=== PATIENT | male | born 1955 | race Caucasian/White ===

== ENCOUNTER 2018-09-01 15:29 | Inpatient (IN) ==
[2018-09-01] MEDS ORDERED: ASPIRIN 325 MG TABLET PO STA (15:40)
[2018-09-01] MEDS ORDERED: HEPARIN/NACL 0.9% 2 UNITS/ML 1,000 ML IV ONE (15:45)
[2018-09-01] MEDS ORDERED: LIDOCAINE 1% 20 ML VIAL ONE (15:45)
[2018-09-01] MEDS ORDERED: ONDANSETRON 4 MG/2 ML VIAL IV STA (15:46)
[2018-09-01] MEDS ORDERED: ENOXAPARIN 100 MG/ML SYRINGE SUBCUT STA (15:46)
[2018-09-01] MEDS ORDERED: MORPHINE 4 MG/1 ML VIAL IV STA (15:46)
[2018-09-01] MEDS ORDERED: ONDANSETRON 4 MG/2 ML VIAL ONE ×2 (15:47→16:42)
[2018-09-01] MEDS ORDERED: ENOXAPARIN 100 MG/ML SYRINGE SUBCUT ONE (15:47)
[2018-09-01] MEDS ORDERED: METOPROLOL TARTRATE 5 MG/5 ML VIAL IV STA (15:51)
[2018-09-01] MEDS ORDERED: METOPROLOL TARTRATE 5 MG/5 ML VIAL IV ONE (15:51)
[2018-09-01 16:03] LABS: Basophils # 0.1 10*3/uL (0.0-0.2); Basophils % 0.6 % (0.0-0.8); Eosinophils # 0.3 10*3/uL (0.0-0.87); Eosinophils % 4.2 % (0.00-10.9); Hematocrit 43.2 VOL% (42.0-52.0); Hemoglobin 14.3 GM/DL (14.0-18.0); Immature Granulocytes % 0.5 %; Immature Granulocytes Absolute 0.04 #; Lymphocytes # 2.9 10*3/uL (1.4-4.0); Lymphocytes % 35.7 % (21.2-54.2); Mean Corpuscular HGB Conc 33.1 GM/DL (32-36); Mean Corpuscular Hemoglobin 31 PG (27-34); Mean Corpuscular Volume 93.3 FL (87-102); Mean Platelet Volume 9.1 FL (9.6-12.0); Monocytes # 0.7 10*3/uL (0.11-0.8); Neutrophils # 4.1 10*3/uL (1.4-7.4); Platelet Count 282 T/CUMM (130-400); Red Blood Count 4.63 MC/CUMM (3.8-5.5); Red Cell Distribution Width 12.4 % (9.3-17.3); White Blood Count 8.1 T/CUMM (4-12)
[2018-09-01 16:13] LABS: INR 0.9; PT Patient Result 9.8 SECS; Partial Thromboplastin Time 24.6 SECS (0-40)
[2018-09-01] MEDS ORDERED: TIROFIBAN 5,000 MCG/100 ML PREMIX IV ONE (16:22)
[2018-09-01 16:23] LABS: Bilirubin,Total 0.5 MG/DL (0.2-1.0); Calcium 9.2 MG/DL (8.5-10.1); Osmolality,Calculated 283.1 MOS/KG (273-304); Potassium 4.1 MMOL/L (3.5-5.1); Total Protein 6.9 G/DL (6.4-8.3)
[2018-09-01] MEDS ORDERED: DOCUSATE SODIUM 100 MG CAPSULE PO PRN (16:25)
[2018-09-01] MEDS ORDERED: MORPHINE 4 MG/1 ML VIAL IV PRN (16:25)
[2018-09-01] MEDS ORDERED: diphenhydrAMINE CAP 25 MG CAPSULE PO PRN (16:25)
[2018-09-01] MEDS ORDERED: MAGNESIUM SULF RIDER 2 GM in PREMIX 1 EACH IV PRN (16:25)
[2018-09-01] MEDS ORDERED: guaiFENesin/DM ER 600-30 MG TABLET PO PRN (16:25)
[2018-09-01] MEDS ORDERED: BISACODYL 5 MG TABLET PO PRN (16:25)
[2018-09-01] MEDS ORDERED: POTASSIUM CHLORIDE 20 MEQ TABLET PO PRN (16:25)
[2018-09-01] MEDS ORDERED: ACETAMINOPHEN 325 MG TABLET PO PRN (16:25)
[2018-09-01] MEDS ORDERED: ONDANSETRON 4 MG/2 ML VIAL IV PRN (16:25)
[2018-09-01] MEDS ORDERED: MAGNESIUM SULF RIDER 4 GM in PREMIX 1 EACH IV PRN (16:25)
[2018-09-01] MEDS ORDERED: TIROFIBAN 5,000 MCG/100 ML PREMIX IV SCH (16:29)
[2018-09-01] MEDS ORDERED: TICAGRELOR 90 MG TABLET ONE (16:31)
[2018-09-01] MEDS ORDERED: NITROGLYCERIN SL 0.4 MG TABLET SL PRN (16:40)
[2018-09-01] MEDS ORDERED: ALUMINUM/MAGNES/SIMETH MAX STR 30 ML UDCUP PO PRN (16:40)
[2018-09-01] MEDS ORDERED: SODIUM CHLORIDE 0.9% 1,000 ML IV SCH (17:00)
[2018-09-01] MEDS: NICOTINE 21 MG/24 HR PATCH TRANSDERM SCH (18:34)
[2018-09-01 19:44] LABS: Troponin I 0.017 NG/ML (0.00-0.045)
[2018-09-01] MEDS: ROSUVASTATIN 20 MG TABLET PO SCH (20:16)
[2018-09-01] MEDS: METOPROLOL TARTRATE 50 MG TABLET PO SCH (20:17)
[2018-09-01] MEDS: TICAGRELOR 90 MG TABLET PO SCH (20:17)
[2018-09-01 22:27] LABS: Troponin I 0.029 NG/ML (0.00-0.045)
[2018-09-02 04:45] LABS: Basophils # 0.1 10*3/uL (0.0-0.2); Basophils % 0.6 % (0.0-0.8); Eosinophils # 0.1 10*3/uL (0.0-0.87); Eosinophils % 1.4 % (0.00-10.9); Hemoglobin 12.2 GM/DL (14.0-18.0); Immature Granulocytes % 0.3 %; Immature Granulocytes Absolute 0.03 #; Lymphocytes # 1.5 10*3/uL (1.4-4.0); Lymphocytes % 16.6 % (21.2-54.2); Mean Corpuscular HGB Conc 33.9 GM/DL (32-36); Mean Corpuscular Hemoglobin 31 PG (27-34); Mean Corpuscular Volume 92.1 FL (87-102); Mean Platelet Volume 9.5 FL (9.6-12.0); Monocytes # 0.6 10*3/uL (0.11-0.8); Monocytes % 6.8 % (1.7-12.7); Neutrophils # 6.7 10*3/uL (1.4-7.4); Neutrophils % 74.3 % (38.7-73.9); Platelet Count 259 T/CUMM (130-400); Red Blood Count 3.91 MC/CUMM (3.8-5.5); Red Cell Distribution Width 12.3 % (9.3-17.3)
[2018-09-02 05:03] LABS: INR 0.9; PT Patient Result 10.2 SECS
[2018-09-02 05:27] LABS: Blood Urea Nitrogen 14 MG/DL (7-18); Calcium 8.6 MG/DL (8.5-10.1); Glucose 122 MG/DL (74-106); Osmolality,Calculated 282.3 MOS/KG (273-304); Potassium 3.9 MMOL/L (3.5-5.1); Sodium 141 MMOL/L (136-145); Troponin I 0.024 NG/ML (0.00-0.045)
[2018-09-02 06:50] LABS: Risk Ratio 4.37; VLDL CHOLESTEROL 38.4 MG/DL
[2018-09-02] MEDS: ASPIRIN EC 81 MG TABLET PO SCH (08:34)
[2018-09-02] MEDS: PANTOPRAZOLE 40 MG TABLET PO SCH (08:35)
[2018-09-02] MEDS: TICAGRELOR 90 MG TABLET PO SCH ×2 (08:35→21:33)
[2018-09-02] MEDS: NICOTINE 21 MG/24 HR PATCH TRANSDERM SCH (08:35)
[2018-09-02] MEDS: LOSARTAN 50 MG TABLET PO SCH (08:35)
[2018-09-02] MEDS: METOPROLOL TARTRATE 50 MG TABLET PO SCH ×2 (08:35→21:33)
[2018-09-02] MEDS ORDERED: ENOXAPARIN 40 MG/0.4 ML SYRINGE SUBCUT SCH (16:30)
[2018-09-02] MEDS: ZALEPLON 5 MG CAPSULE PO PRN (21:33)
[2018-09-02] MEDS: ROSUVASTATIN 20 MG TABLET PO SCH (21:36)
[2018-09-03] MEDS: ZALEPLON 5 MG CAPSULE PO PRN (01:24)
[2018-09-03 03:40] LABS: Basophils % 0.2 % (0.0-0.8); Eosinophils # 0.1 10*3/uL (0.0-0.87); Eosinophils % 1.4 % (0.00-10.9); Hematocrit 36.4 VOL% (42.0-52.0); Hemoglobin 11.8 GM/DL (14.0-18.0); Immature Granulocytes % 0.4 %; Immature Granulocytes Absolute 0.04 #; Lymphocytes # 2.1 10*3/uL (1.4-4.0); Lymphocytes % 22.3 % (21.2-54.2); Mean Corpuscular HGB Conc 32.4 GM/DL (32-36); Mean Corpuscular Hemoglobin 30 PG (27-34); Mean Corpuscular Volume 93.6 FL (87-102); Mean Platelet Volume 9.4 FL (9.6-12.0); Monocytes # 0.8 10*3/uL (0.11-0.8); Monocytes % 8.6 % (1.7-12.7); Neutrophils # 6.2 10*3/uL (1.4-7.4); Neutrophils % 67.1 % (38.7-73.9); Platelet Count 275 T/CUMM (130-400); Red Blood Count 3.89 MC/CUMM (3.8-5.5); Red Cell Distribution Width 12.3 % (9.3-17.3); White Blood Count 9.3 T/CUMM (4-12)
[2018-09-03 03:53] LABS: INR 0.9
[2018-09-03 04:05] LABS: Calcium 8.7 MG/DL (8.5-10.1); Osmolality,Calculated 285.1 MOS/KG (273-304); Potassium 4.1 MMOL/L (3.5-5.1)
[2018-09-03 08:15] VITALS: BP 156/83
[2018-09-03] MEDS: NICOTINE 21 MG/24 HR PATCH TRANSDERM SCH (09:10)
[2018-09-03] MEDS: METOPROLOL TARTRATE 50 MG TABLET PO SCH (09:12)
[2018-09-03] MEDS: PANTOPRAZOLE 40 MG TABLET PO SCH (09:12)
[2018-09-03] MEDS: TICAGRELOR 90 MG TABLET PO SCH (09:12)
[2018-09-03] MEDS: LOSARTAN 50 MG TABLET PO SCH (09:12)
[2018-09-03] MEDS: ASPIRIN EC 81 MG TABLET PO SCH (09:12)
== END 2018-09-03 12:18 | disposition home or self-care (01) | DRG 249 ==
LOC: N.ED 15:29 → N.ICU 15:55 → N.CL 17:06 → N.CVR 17:08 → N.ICU 17:18 → N.TELEN 09-02 11:02
PROVIDERS: ADMIT Internal Medicine Cardiovascular Disease; ATTEND Internal Medicine Cardiovascular Disease

== ENCOUNTER 2018-10-07 05:32 | Inpatient (IN) ==
[2018-10-06 11:44] LABS: Basophils % 0.5 % (0.0-0.8); Eosinophils # 0.3 10*3/uL (0.0-0.87); Eosinophils % 5.2 % (0.00-10.9); Hematocrit 36.6 VOL% (42.0-52.0); Hemoglobin 11.6 GM/DL (14.0-18.0); Immature Granulocytes % 0.4 %; Immature Granulocytes Absolute 0.02 #; Lymphocytes # 2.3 10*3/uL (1.4-4.0); Lymphocytes % 41.4 % (21.2-54.2); Mean Corpuscular HGB Conc 31.7 GM/DL (32-36); Mean Corpuscular Volume 93.1 FL (87-102); Mean Platelet Volume 8.9 FL (9.6-12.0); Monocytes % 10.6 % (1.7-12.7); Neutrophils % 41.9 % (38.7-73.9); Platelet Count 224 T/CUMM (130-400); Red Blood Count 3.93 MC/CUMM (3.8-5.5); Red Cell Distribution Width 13.1 % (9.3-17.3); White Blood Count 5.6 T/CUMM (4-12)
[2018-10-06 11:47] LABS: Apearance,Urine CLEAR (Clear); Bilirubin,Urine Negative (Negative); Blood, Urine Small mg/dL (Negative); Glucose,Urine (UA) Negative (Negative); Ketones,Urine Negative (Negative); Mucus,Urine Occasional /LPF (Occasional); Nitrite,Urine Negative (Negative); Protein,Urine Negative; RBC,Urine <1 /HPF (0-4); Squamous Epithelial Cell,Urine Occasional /HPF (0-10); Urine Color Yellow (Yellow); Urine Specific Gravity 1.011 (1.001-1.035); Urine Urobilinogen < 2.0 EU/DL (0.2-1.0); WBC,Urine 1 /HPF (0-6)
[2018-10-06 11:54] LABS: INR 0.9
[~2018-10-07 05:32] MED LIST: PAPAVERINE 60 MG/2 ML VIAL ONE; SODIUM CHLORIDE 0.9% 1,000 ML IV PRN; TISSUE ADHESIVE 1 EACH APPLICATOR TOP ONE; VANCOMYCIN 1,000 MG VIAL ONE
[2018-10-07] MEDS ORDERED: VANCOMYCIN 1,000 MG VIAL ONE (05:34)
[2018-10-07] MEDS ORDERED: CEFUROXIME 1,500 MG VIAL ONE (05:34)
[2018-10-07] MEDS ORDERED: CALCIUM CHLORIDE 1,000 MG/10 ML VIAL IV ONE (05:40)
[2018-10-07] MEDS ORDERED: HEPARIN/NACL 0.9% 2 UNITS/ML 500 ML IV ONE (05:41)
[2018-10-07] MEDS ORDERED: SUFentanil 250 MCG/5 ML AMP ONE (05:41)
[2018-10-07] MEDS ORDERED: MIDAZOLAM 10 MG/2 ML VIAL ONE ×2 (05:41)
[2018-10-07] MEDS ORDERED: SODIUM CHLORIDE 0.9% 250 ML IV ONE (05:42)
[2018-10-07] MEDS ORDERED: VECURONIUM 10 MG VIAL IV ONE (05:42)
[2018-10-07] MEDS ORDERED: LACTATED RINGERS 1,000 ML IV ONE (05:42)
[2018-10-07] MEDS ORDERED: NITROGLYCERIN DRIP 50 MG/250 ML BOTTLE IV ONE (05:42)
[2018-10-07] MEDS ORDERED: SODIUM CHLORIDE 0.9% 1,000 ML IV ONE (05:42)
[2018-10-07] MEDS ORDERED: ePHEDrine 50 MG/ML AMP ONE (05:42)
[2018-10-07] MEDS ORDERED: AMINOCAPROIC ACID 5,000 MG/20 ML VIAL ONE (06:10)
[2018-10-07] MEDS ORDERED: ETOMIDATE 40 MG/20 ML VIAL IV ONE (06:10)
[2018-10-07] MEDS ORDERED: FAMOTIDINE 20 MG TABLET PO ONE (06:30)
[2018-10-07] MEDS ORDERED: DIAZEPAM 5 MG TABLET PO ONE (06:30)
[2018-10-07] MEDS ORDERED: FAMOTIDINE 20 MG TABLET ONE (06:37)
[2018-10-07] MEDS ORDERED: DIAZEPAM 5 MG TABLET ONE (06:37)
[2018-10-07] MEDS ORDERED: LACTATED RINGERS 1,000 ML IV SCH (07:00)
[2018-10-07 07:44] LABS: ABG Base Excess -1.5 MMOL/L (-2.5-2.5); ABG HCO3 23.2 MMOL/L (20-26); ABG Oxygen Saturation 99.6 % (95-100); ABG PCO2 49.3 MM HG (35-48); ABG PH 7.314 (7.35-7.45); ABG TCO2 22.9 MMOL/L (23-27); Glucose Heart Surgery 126 MG/DL (74-106); Hematocrit Heart Surgery 32.6 PERCENT (42-52); Hemoglobin Heart Surgery 10.5 G/DL (14.0-18.0); Ionized Calcium Arterial 1.24 MMOL/L (1.21-1.46); PCO2 Patient Temp Arterial 49.3 MMHG; PH Patient Temp Arterial 7.314; Patient Temperature 37 CELCIUS; Sodium Heart/CVR 142 MMOL/L (135-145)
[2018-10-07 08:10] LABS: Apearance,Urine CLEAR (Clear); Bilirubin,Urine Negative (Negative); Blood, Urine Small mg/dL (Negative); Glucose,Urine (UA) Negative (Negative); Ketones,Urine Negative (Negative); Mucus,Urine Occasional /LPF (Occasional); Nitrite,Urine Negative (Negative); Protein,Urine Negative; RBC,Urine 1 /HPF (0-4); Squamous Epithelial Cell,Urine Occasional /HPF (0-10); Urine Color Yellow (Yellow); Urine Specific Gravity 1.017 (1.001-1.035); Urine Urobilinogen < 2.0 EU/DL (0.2-1.0); WBC,Urine 1 /HPF (0-6)
[2018-10-07 09:03] LABS: Hematocrit Heart Surgery 24.2 PERCENT (42-52); Hemoglobin Heart Surgery 7.8 G/DL (14.0-18.0); PCO2 Patient Temp Venous 43.2 MM HG; PH Patient Temp Venous 7.378; PO2 Patient Temp Venous 35.7 MM HG; Potassium Heart/CVR 4.9 MMOL/L (3.5-5.1); VBG Base Excess 0.2 MEQ/L (0-4); VBG HCO3 24.2 MEQ/L (24-28); VBG PCO2 43.2 MMHG (41-51); VBG PH 7.378; VBG PO2 35.7 MMHG (17-40)
[2018-10-07 09:29] LABS: Hematocrit Heart Surgery 24.8 PERCENT (42-52); PCO2 Patient Temp Venous 42.3 MM HG; PH Patient Temp Venous 7.373; PO2 Patient Temp Venous 39.3 MM HG; Potassium Heart/CVR 4.8 MMOL/L (3.5-5.1); VBG Base Excess -0.6 MEQ/L (0-4); VBG HCO3 23.6 MEQ/L (24-28); VBG Oxygen Saturation 72.5 %; VBG PCO2 42.3 MMHG (41-51); VBG PH 7.373; VBG PO2 39.3 MMHG (17-40)
[2018-10-07 09:41] LABS: ABG Base Excess -1.9 MMOL/L (-2.5-2.5); ABG HCO3 22.8 MMOL/L (20-26); ABG Oxygen Saturation 99.5 % (95-100); ABG PH 7.335 (7.35-7.45); ABG TCO2 22.3 MMOL/L (23-27); Glucose Heart Surgery 280 MG/DL (74-106); Hematocrit Heart Surgery 27.4 PERCENT (42-52); Hemoglobin Heart Surgery 8.8 G/DL (14.0-18.0); Ionized Calcium Arterial 1.23 MMOL/L (1.21-1.46); PH Patient Temp Arterial 7.335; Patient Temperature 37 CELCIUS; Potassium Heart/CVR 4.3 MMOL/L (3.5-5.1); Sodium Heart/CVR 134 MMOL/L (135-145)
[2018-10-07] MEDS ORDERED: DEXTROSE 5% KCL 20 MEQ 20 MEQ/1,000 ML BAG IV ONE (09:41)
[2018-10-07] MEDS ORDERED: FUROSEMIDE 20 MG/2 ML VIAL ONE ×2 (09:41→10:40)
[2018-10-07] MEDS ORDERED: HEPARIN 10,000 UNIT/10 ML VIAL ONE (09:41)
[2018-10-07] MEDS ORDERED: methylPREDNISolone SOD SUC 1,000 MG/8 ML VIAL ONE (09:41)
[2018-10-07] MEDS ORDERED: MAGNESIUM SULFATE 5 GM/10 ML VIAL IV ONE (09:41)
[2018-10-07] MEDS ORDERED: PROTAMINE SULFATE 250 MG/25 ML VIAL IV ONE (09:41)
[2018-10-07] MEDS ORDERED: ALBUMIN 25% 25 GM/100 ML VIAL IV ONE (09:41)
[2018-10-07] MEDS ORDERED: MANNITOL 100 GM/500 ML BAG IV ONE (09:41)
[2018-10-07] MEDS ORDERED: PROTAMINE SULFATE 50 MG/5 ML VIAL IV ONE (09:42)
[2018-10-07] MEDS ORDERED: ALBUMIN 5% 12.5 GM/250 ML VIAL IV ONE (10:07)
[2018-10-07] MEDS ORDERED: POTASSIUM CHLORIDE RIDER 100 ML IV ONE (10:08)
[2018-10-07] MEDS ORDERED: DEXTROSE 50% 25 GM/50 ML SYRINGE IV PRN ×2 (10:24)
[2018-10-07] MEDS ORDERED: MIDAZOLAM 2 MG/2 ML VIAL IV PRN (10:24)
[2018-10-07] MEDS ORDERED: ACETAMINOPHEN 650 MG SUPP RECTAL PRN (10:24)
[2018-10-07] MEDS ORDERED: MAGNESIUM SULF RIDER 4 GM in PREMIX 1 EACH IV PRN (10:24)
[2018-10-07] MEDS ORDERED: MAGNESIUM SULF RIDER 2 GM in PREMIX 1 EACH IV PRN (10:24)
[2018-10-07] MEDS ORDERED: CALCIUM CHLORIDE 1,000 MG/10 ML SYRINGE IV PRN (10:24)
[2018-10-07] MEDS ORDERED: CHLORHEXIDINE 4% SOLN 118 ML BOTTLE TOP PRN (10:24)
[2018-10-07] MEDS ORDERED: SEVOFLURANE 1 UNIT/15 MINUTE INH ONE (10:40)
[2018-10-07] MEDS: SODIUM CHLORIDE 0.9% 250 ML IV PRN ×6 (10:45→16:10)
[2018-10-07 11:06] LABS: Basophils % 0.2 % (0.0-0.8); Eosinophils # 0.2 10*3/uL (0.0-0.87); Eosinophils % 2.3 % (0.00-10.9); Hematocrit 29.4 VOL% (42.0-52.0); Hemoglobin 9.4 GM/DL (14.0-18.0); Immature Granulocytes % 0.9 %; Immature Granulocytes Absolute 0.06 #; Lymphocytes # 1.3 10*3/uL (1.4-4.0); Lymphocytes % 19.2 % (21.2-54.2); Mean Corpuscular Volume 93.6 FL (87-102); Mean Platelet Volume 8.9 FL (9.6-12.0); Monocytes % 4.9 % (1.7-12.7); Neutrophils % 72.5 % (38.7-73.9); Platelet Count 155 T/CUMM (130-400); Red Blood Count 3.14 MC/CUMM (3.8-5.5); Red Cell Distribution Width 13.2 % (9.3-17.3); White Blood Count 6.6 T/CUMM (4-12)
[2018-10-07 11:06] LABS: ABG Base Excess 0.3 MMOL/L (-2.5-2.5); ABG Oxygen Saturation 96.9 % (95-100); ABG PCO2 40.6 MM HG (35-48); ABG PH 7.407 (7.35-7.45); ABG PO2 99.9 MM HG (80-95); ABG TCO2 26.2 MMOL/L (23-27); Glucose Heart Surgery 187 MG/DL (74-106); Hemoglobin Heart Surgery 10.1 G/DL (14.0-18.0); Potassium Heart/CVR 3.5 MMOL/L (3.5-5.1)
[2018-10-07 11:15] LABS: PT Patient Result 10.7 SECS; Partial Thromboplastin Time 24.7 SECS (0-40)
[2018-10-07] MEDS: ALBUMIN 5% 12.5 GM in PREMIX 1 EACH IV PRN ×2 (11:15→11:50)
[2018-10-07 11:22] LABS: Blood Urea Nitrogen 16 MG/DL (7-18); Calcium 8.1 MG/DL (8.5-10.1); Glucose 194 MG/DL (74-106); Osmolality,Calculated 288.1 MOS/KG (273-304)
[2018-10-07] MEDS: SODIUM CHLORIDE 0.45% 1,000 ML IV SCH ×2 (11:25)
[2018-10-07] MEDS: POTASSIUM CHLORIDE RIDER 20 MEQ in PREMIX 1 EACH IV PRN ×4 (11:26→20:20)
[2018-10-07] MEDS ORDERED: NITROPRUSSIDE 50 MG/2 ML VIAL ONE (11:35)
[2018-10-07] MEDS ORDERED: NITROPRUSSIDE 100 MG in DEXTROSE 5% 250 ML IV PRN (11:37)
[2018-10-07] MEDS ORDERED: NITROGLYCERIN DRIP 50 MG/250 ML BOTTLE IV PRN (11:38)
[2018-10-07] MEDS: INSULIN REGULAR DRIP 100 ML IV SCH (12:12)
[2018-10-07] MEDS ORDERED: ASPIRIN 325 MG TABLET PO ONE (13:00)
[2018-10-07] MEDS: INSULIN REGULAR 100 UNIT/ML IV PRN ×3 (13:11→17:06)
[2018-10-07 14:28] LABS: ABG Base Excess -1.5 MMOL/L (-2.5-2.5); ABG HCO3 23.1 MMOL/L (20-26); ABG PCO2 42.1 MM HG (35-48); ABG PH 7.361 (7.35-7.45); ABG TCO2 21.9 MMOL/L (23-27); Glucose Heart Surgery 172 MG/DL (74-106); Hematocrit Heart Surgery 29.8 PERCENT (42-52); Hemoglobin Heart Surgery 9.6 G/DL (14.0-18.0); Potassium Heart/CVR 3.3 MMOL/L (3.5-5.1)
[2018-10-07 16:04] LABS: ABG Base Excess -2.2 MMOL/L (-2.5-2.5); ABG HCO3 22.9 MMOL/L (20-26); ABG Oxygen Saturation 97.5 % (95-100); ABG PCO2 40.6 MM HG (35-48); ABG PH 7.369 (7.35-7.45); ABG PO2 117.9 MM HG (80-95); ABG TCO2 24.1 MMOL/L (23-27); Glucose Heart Surgery 145 MG/DL (74-106); Hemoglobin Heart Surgery 9.9 G/DL (14.0-18.0)
[2018-10-07] MEDS: MORPHINE 4 MG/1 ML VIAL IV PRN (16:18)
[2018-10-07] MEDS: MORPHINE 10 MG/1 ML VIAL IV PRN ×4 (17:13→23:02)
[2018-10-07] MEDS: CEFUROXIME INJ 1,500 MG in SYRINGE 1 EACH IV SCH (18:49)
[2018-10-07] MEDS: POTASSIUM CHLORIDE RIDER 10 MEQ in PREMIX 1 EACH IV PRN (19:56)
[2018-10-07] MEDS ORDERED: KETOROLAC 30 MG/1 ML VIAL IV ONE (20:06)
[2018-10-07] MEDS: CHLORHEXIDINE 0.12% ORAL RINSE 60 ML BOTTLE SWISH/SPIT SCH (21:07)
[2018-10-08] MEDS: MORPHINE 10 MG/1 ML VIAL IV PRN ×2 (01:13→07:16)
[2018-10-08] MEDS: INSULIN REGULAR 100 UNIT/ML IV PRN (02:59)
[2018-10-08] MEDS: INSULIN REGULAR DRIP 100 ML IV SCH (03:03)
[2018-10-08] MEDS: SODIUM CHLORIDE 0.45% 1,000 ML IV SCH ×2 (03:29→06:29)
[2018-10-08 03:44] LABS: Basophils % 0.1 % (0.0-0.8); Hematocrit 27.9 VOL% (42.0-52.0); Hemoglobin 8.9 GM/DL (14.0-18.0); Immature Granulocytes % 0.7 %; Immature Granulocytes Absolute 0.07 #; Lymphocytes % 10.6 % (21.2-54.2); Mean Corpuscular HGB Conc 31.9 GM/DL (32-36); Mean Corpuscular Volume 93.6 FL (87-102); Mean Platelet Volume 9.2 FL (9.6-12.0); Monocytes % 6.2 % (1.7-12.7); Neutrophils % 82.4 % (38.7-73.9); Platelet Count 201 T/CUMM (130-400); Red Blood Count 2.98 MC/CUMM (3.8-5.5); Red Cell Distribution Width 13.4 % (9.3-17.3); White Blood Count 9.7 T/CUMM (4-12)
[2018-10-08 04:03] LABS: Calcium 8.4 MG/DL (8.5-10.1); Osmolality,Calculated 284.3 MOS/KG (273-304)
[2018-10-08] MEDS: CEFUROXIME INJ 1,500 MG in SYRINGE 1 EACH IV SCH ×2 (05:44→19:06)
[2018-10-08] MEDS ORDERED: FUROSEMIDE 40 MG/4 ML VIAL IV ONE (07:02)
[2018-10-08] MEDS: INSULIN REGULAR 100 UNIT/ML SUBCUT SCH ×3 (07:47→16:11)
[2018-10-08] MEDS ORDERED: INSULIN REGULAR 100 UNIT/ML SUBCUT SCH (08:00)
[2018-10-08] MEDS: PANTOPRAZOLE 40 MG VIAL IV SCH (08:32)
[2018-10-08] MEDS: CLOPIDOGREL 75 MG TABLET PO SCH (08:41)
[2018-10-08] MEDS: METOPROLOL TARTRATE 25 MG TABLET PO SCH ×2 (08:43→22:38)
[2018-10-08] MEDS: CHLORHEXIDINE 0.12% ORAL RINSE 60 ML BOTTLE SWISH/SPIT SCH ×2 (08:46→22:54)
[2018-10-08] MEDS: NICOTINE 21 MG/24 HR PATCH TRANSDERM SCH (08:48)
[2018-10-08] MEDS: oxyCODONE/ACETAMINOPHEN 5-325 MG TABLET PO PRN ×3 (09:30→19:22)
[2018-10-08] MEDS: ASPIRIN EC 325 MG TABLET PO SCH (10:42)
[2018-10-08] MEDS: ATORVASTATIN 40 MG TABLET PO SCH ×2 (10:42→22:38)
[2018-10-08] MEDS: FUROSEMIDE 40 MG TABLET PO SCH (10:42)
[2018-10-08] MEDS: ONDANSETRON 4 MG/2 ML VIAL IV PRN ×2 (14:35→22:41)
[2018-10-08] MEDS ORDERED: Enzalutamide [Xtandi] 160 MG PO SCH (21:00)
[2018-10-08] MEDS: MORPHINE 4 MG/1 ML VIAL IV PRN (22:43)
[2018-10-09] MEDS: INSULIN REGULAR 100 UNIT/ML SUBCUT SCH ×7 (00:06→20:25)
[2018-10-09] MEDS: MORPHINE 4 MG/1 ML VIAL IV PRN (02:47)
[2018-10-09 04:44] LABS: Basophils % 0.1 % (0.0-0.8); Hematocrit 29.3 VOL% (42.0-52.0); Hemoglobin 9.2 GM/DL (14.0-18.0); Immature Granulocytes % 0.6 %; Immature Granulocytes Absolute 0.06 #; Lymphocytes # 1.4 10*3/uL (1.4-4.0); Lymphocytes % 14.9 % (21.2-54.2); Mean Corpuscular HGB Conc 31.4 GM/DL (32-36); Mean Corpuscular Volume 95.4 FL (87-102); Mean Platelet Volume 9.3 FL (9.6-12.0); Monocytes % 10.8 % (1.7-12.7); Neutrophils % 73.6 % (38.7-73.9); Platelet Count 229 T/CUMM (130-400); Red Blood Count 3.07 MC/CUMM (3.8-5.5); Red Cell Distribution Width 13.7 % (9.3-17.3); White Blood Count 9.7 T/CUMM (4-12)
[2018-10-09] MEDS: oxyCODONE/ACETAMINOPHEN 5-325 MG TABLET PO PRN ×4 (04:44→18:19)
[2018-10-09 05:01] LABS: Calcium 8.8 MG/DL (8.5-10.1); Osmolality,Calculated 283.3 MOS/KG (273-304)
[2018-10-09] MEDS ORDERED: METOPROLOL TARTRATE 25 MG TABLET PO SCH (08:43)
[2018-10-09] MEDS: ASPIRIN EC 325 MG TABLET PO SCH (09:05)
[2018-10-09] MEDS: FUROSEMIDE 40 MG TABLET PO SCH (09:05)
[2018-10-09] MEDS: NICOTINE 21 MG/24 HR PATCH TRANSDERM SCH (09:05)
[2018-10-09] MEDS: CLOPIDOGREL 75 MG TABLET PO SCH (09:05)
[2018-10-09] MEDS: PANTOPRAZOLE 40 MG VIAL IV SCH (09:05)
[2018-10-09] MEDS: CHLORHEXIDINE 0.12% ORAL RINSE 60 ML BOTTLE SWISH/SPIT SCH ×2 (09:16→21:20)
[2018-10-09] MEDS: METOPROLOL TARTRATE 50 MG TABLET PO SCH (21:19)
[2018-10-09] MEDS: ATORVASTATIN 40 MG TABLET PO SCH (21:19)
[2018-10-09] MEDS: CLORAZEPATE 3.75 MG TABLET PO PRN (21:20)
[2018-10-10] MEDS: INSULIN REGULAR 100 UNIT/ML SUBCUT SCH ×6 (00:09→20:08)
[2018-10-10 06:17] LABS: Calcium 9.2 MG/DL (8.5-10.1); Osmolality,Calculated 286.1 MOS/KG (273-304)
[2018-10-10 06:33] LABS: Basophils % 0.3 % (0.0-0.8); Eosinophils # 0.1 10*3/uL (0.0-0.87); Eosinophils % 1.2 % (0.00-10.9); Hematocrit 28.7 VOL% (42.0-52.0); Hemoglobin 9.2 GM/DL (14.0-18.0); Immature Granulocytes % 0.5 %; Immature Granulocytes Absolute 0.04 #; Lymphocytes # 2.4 10*3/uL (1.4-4.0); Mean Corpuscular HGB Conc 32.1 GM/DL (32-36); Mean Corpuscular Volume 94.4 FL (87-102); Mean Platelet Volume 9.4 FL (9.6-12.0); Monocytes % 11.1 % (1.7-12.7); Neutrophils % 59.9 % (38.7-73.9); Platelet Count 260 T/CUMM (130-400); Red Blood Count 3.04 MC/CUMM (3.8-5.5); Red Cell Distribution Width 13.5 % (9.3-17.3); White Blood Count 8.8 T/CUMM (4-12)
[2018-10-10] MEDS: METOPROLOL TARTRATE 50 MG TABLET PO SCH ×2 (08:29→21:57)
[2018-10-10] MEDS: FUROSEMIDE 40 MG TABLET PO SCH (08:29)
[2018-10-10] MEDS: ASPIRIN EC 325 MG TABLET PO SCH (08:29)
[2018-10-10] MEDS: CLOPIDOGREL 75 MG TABLET PO SCH (08:29)
[2018-10-10] MEDS: NICOTINE 21 MG/24 HR PATCH TRANSDERM SCH (08:29)
[2018-10-10] MEDS: PANTOPRAZOLE 40 MG VIAL IV SCH (08:30)
[2018-10-10] MEDS: CHLORHEXIDINE 0.12% ORAL RINSE 60 ML BOTTLE SWISH/SPIT SCH ×2 (08:30→22:09)
[2018-10-10] MEDS: CLORAZEPATE 3.75 MG TABLET PO PRN ×2 (10:45→22:07)
[2018-10-10] MEDS ORDERED: BISACODYL 5 MG TABLET PO PRN (11:28)
[2018-10-10] MEDS: DOCUSATE SODIUM 100 MG CAPSULE PO SCH ×2 (12:17→21:57)
[2018-10-10] MEDS: oxyCODONE/ACETAMINOPHEN 5-325 MG TABLET PO PRN ×2 (14:59→22:07)
[2018-10-10] MEDS: ATORVASTATIN 40 MG TABLET PO SCH (21:57)
[2018-10-11] MEDS: INSULIN REGULAR 100 UNIT/ML SUBCUT SCH ×6 (01:33→21:43)
[2018-10-11 04:19] LABS: Basophils % 0.2 % (0.0-0.8); Eosinophils # 0.3 10*3/uL (0.0-0.87); Eosinophils % 3.3 % (0.00-10.9); Hematocrit 29.8 VOL% (42.0-52.0); Hemoglobin 9.4 GM/DL (14.0-18.0); Immature Granulocytes % 0.7 %; Immature Granulocytes Absolute 0.06 #; Lymphocytes # 2.8 10*3/uL (1.4-4.0); Lymphocytes % 31.6 % (21.2-54.2); Mean Corpuscular HGB Conc 31.5 GM/DL (32-36); Mean Corpuscular Volume 94.3 FL (87-102); Mean Platelet Volume 9.1 FL (9.6-12.0); Monocytes % 8.8 % (1.7-12.7); Neutrophils % 55.4 % (38.7-73.9); Platelet Count 301 T/CUMM (130-400); Red Blood Count 3.16 MC/CUMM (3.8-5.5); Red Cell Distribution Width 13.2 % (9.3-17.3); White Blood Count 8.8 T/CUMM (4-12)
[2018-10-11 04:31] LABS: Calcium 8.9 MG/DL (8.5-10.1); Osmolality,Calculated 282.4 MOS/KG (273-304)
[2018-10-11] MEDS: FUROSEMIDE 40 MG TABLET PO SCH (09:30)
[2018-10-11] MEDS: NICOTINE 21 MG/24 HR PATCH TRANSDERM SCH (09:30)
[2018-10-11] MEDS: METOPROLOL TARTRATE 50 MG TABLET PO SCH ×2 (09:31→20:50)
[2018-10-11] MEDS: ASPIRIN EC 325 MG TABLET PO SCH (09:31)
[2018-10-11] MEDS: CLOPIDOGREL 75 MG TABLET PO SCH (09:31)
[2018-10-11] MEDS: DOCUSATE SODIUM 100 MG CAPSULE PO SCH ×2 (09:31→20:51)
[2018-10-11] MEDS: oxyCODONE/ACETAMINOPHEN 5-325 MG TABLET PO PRN ×3 (09:31→21:40)
[2018-10-11] MEDS: PANTOPRAZOLE 40 MG VIAL IV SCH (09:32)
[2018-10-11] MEDS: CHLORHEXIDINE 0.12% ORAL RINSE 60 ML BOTTLE SWISH/SPIT SCH ×2 (09:34→21:35)
[2018-10-11] MEDS: POTASSIUM CHLORIDE RIDER 10 MEQ in PREMIX 1 EACH IV PRN ×5 (11:04→18:08)
[2018-10-11] MEDS: POTASSIUM CHLORIDE 20 MEQ TABLET PO PRN (20:50)
[2018-10-11] MEDS: ATORVASTATIN 40 MG TABLET PO SCH (20:51)
[2018-10-11] MEDS: CLORAZEPATE 3.75 MG TABLET PO PRN (21:40)
[2018-10-12] MEDS: INSULIN REGULAR 100 UNIT/ML SUBCUT SCH ×6 (01:41→20:53)
[2018-10-12 05:09] LABS: Basophils % 0.4 % (0.0-0.8); Eosinophils # 0.5 10*3/uL (0.0-0.87); Eosinophils % 6.1 % (0.00-10.9); Hematocrit 31.6 VOL% (42.0-52.0); Hemoglobin 10.2 GM/DL (14.0-18.0); Immature Granulocytes % 0.7 %; Immature Granulocytes Absolute 0.05 #; Lymphocytes # 2.3 10*3/uL (1.4-4.0); Lymphocytes % 31.2 % (21.2-54.2); Mean Corpuscular HGB Conc 32.3 GM/DL (32-36); Mean Corpuscular Volume 93.2 FL (87-102); Monocytes % 10.1 % (1.7-12.7); Neutrophils % 51.5 % (38.7-73.9); Platelet Count 327 T/CUMM (130-400); Red Blood Count 3.39 MC/CUMM (3.8-5.5); Red Cell Distribution Width 13.3 % (9.3-17.3); White Blood Count 7.3 T/CUMM (4-12)
[2018-10-12 05:41] LABS: Calcium 9.2 MG/DL (8.5-10.1); Osmolality,Calculated 283.3 MOS/KG (273-304)
[2018-10-12] MEDS: DOCUSATE SODIUM 100 MG CAPSULE PO SCH ×2 (09:05→21:26)
[2018-10-12] MEDS: NICOTINE 21 MG/24 HR PATCH TRANSDERM SCH (09:05)
[2018-10-12] MEDS: ASPIRIN EC 325 MG TABLET PO SCH (09:05)
[2018-10-12] MEDS: FUROSEMIDE 40 MG TABLET PO SCH (09:05)
[2018-10-12] MEDS: oxyCODONE/ACETAMINOPHEN 5-325 MG TABLET PO PRN ×2 (09:06→15:07)
[2018-10-12] MEDS: METOPROLOL TARTRATE 50 MG TABLET PO SCH ×2 (09:06→21:27)
[2018-10-12] MEDS: CLOPIDOGREL 75 MG TABLET PO SCH (09:06)
[2018-10-12] MEDS: CHLORHEXIDINE 0.12% ORAL RINSE 60 ML BOTTLE SWISH/SPIT SCH ×2 (09:06→21:26)
[2018-10-12] MEDS: PANTOPRAZOLE 40 MG VIAL IV SCH (09:07)
[2018-10-12] MEDS: POTASSIUM CHLORIDE 20 MEQ TABLET PO PRN ×3 (15:30→22:01)
[2018-10-12] MEDS ORDERED: METOPROLOL TARTRATE 5 MG/5 ML VIAL IV SCH (18:00)
[2018-10-12] MEDS: CLORAZEPATE 3.75 MG TABLET PO PRN (21:27)
[2018-10-12] MEDS: ATORVASTATIN 40 MG TABLET PO SCH (21:28)
[2018-10-12] MEDS ORDERED: METOPROLOL TARTRATE 5 MG/5 ML VIAL IV PRN (23:00)
[2018-10-13] MEDS: oxyCODONE/ACETAMINOPHEN 5-325 MG TABLET PO PRN (01:47)
[2018-10-13] MEDS: INSULIN REGULAR 100 UNIT/ML SUBCUT SCH ×3 (02:22→08:18)
[2018-10-13 03:44] LABS: Basophils % 0.5 % (0.0-0.8); Eosinophils # 0.5 10*3/uL (0.0-0.87); Eosinophils % 5.3 % (0.00-10.9); Hematocrit 30.2 VOL% (42.0-52.0); Hemoglobin 9.5 GM/DL (14.0-18.0); Immature Granulocytes % 1.2 %; Lymphocytes # 2.3 10*3/uL (1.4-4.0); Lymphocytes % 26.7 % (21.2-54.2); Mean Corpuscular HGB Conc 31.5 GM/DL (32-36); Mean Corpuscular Volume 92.9 FL (87-102); Monocytes % 11.2 % (1.7-12.7); Neutrophils % 55.1 % (38.7-73.9); Platelet Count 380 T/CUMM (130-400); Red Blood Count 3.25 MC/CUMM (3.8-5.5); Red Cell Distribution Width 13.2 % (9.3-17.3); White Blood Count 8.6 T/CUMM (4-12)
[2018-10-13 03:52] LABS: Calcium 9.1 MG/DL (8.5-10.1); Osmolality,Calculated 280.5 MOS/KG (273-304)
[2018-10-13 08:17] VITALS: BP 131/71
[2018-10-13] MEDS: DOCUSATE SODIUM 100 MG CAPSULE PO SCH (08:20)
[2018-10-13] MEDS: CLOPIDOGREL 75 MG TABLET PO SCH (08:21)
[2018-10-13] MEDS: ASPIRIN EC 325 MG TABLET PO SCH (08:21)
[2018-10-13] MEDS: METOPROLOL TARTRATE 50 MG TABLET PO SCH (08:21)
[2018-10-13] MEDS: PANTOPRAZOLE 40 MG VIAL IV SCH (08:21)
[2018-10-13] MEDS: FUROSEMIDE 40 MG TABLET PO SCH (08:21)
[2018-10-13] MEDS: NICOTINE 21 MG/24 HR PATCH TRANSDERM SCH (08:21)
[2018-10-13] MEDS: CHLORHEXIDINE 0.12% ORAL RINSE 60 ML BOTTLE SWISH/SPIT SCH (08:31)
== END 2018-10-13 12:18 | disposition home health service (06) | DRG 236 ==
LOC: N.OR 05:32 → N.SDSINP 05:33 → EDSTATUS 07:30 → N.CVR 10:24 → N.ICU 10-08 09:04 → N.TELES 10-08 16:42
PROVIDERS: ADMIT Thoracic Surgery (Cardiothoracic Vascular Surgery); ATTEND Thoracic Surgery (Cardiothoracic Vascular Surgery)

== ENCOUNTER 2018-10-18 04:26 | Observation (INO) ==
[2018-10-18] MEDS ORDERED: MORPHINE 4 MG/1 ML VIAL IV STA (04:49)
[2018-10-18] MEDS ORDERED: ONDANSETRON 4 MG/2 ML VIAL IV ONE (04:49)
[2018-10-18 05:21] LABS: Basophils # 0.1 10*3/uL (0.0-0.2); Basophils % 0.5 % (0.0-0.8); Eosinophils # 0.3 10*3/uL (0.0-0.87); Eosinophils % 2.8 % (0.00-10.9); Hematocrit 32.9 VOL% (42.0-52.0); Hemoglobin 10.8 GM/DL (14.0-18.0); Immature Granulocytes % 0.6 %; Immature Granulocytes Absolute 0.07 #; Lymphocytes # 1.8 10*3/uL (1.4-4.0); Lymphocytes % 16.8 % (21.2-54.2); Mean Corpuscular HGB Conc 32.8 GM/DL (32-36); Mean Corpuscular Volume 91.4 FL (87-102); Monocytes % 7.6 % (1.7-12.7); Neutrophils % 71.7 % (38.7-73.9); Platelet Count 596 T/CUMM (130-400); Red Cell Distribution Width 13.2 % (9.3-17.3)
[2018-10-18 05:59] LABS: Albumin 3.5 G/DL (3.4-5.0); Bilirubin,Total 0.6 MG/DL (0.2-1.0); Calcium 9.7 MG/DL (8.5-10.1); Osmolality,Calculated 282.5 MOS/KG (273-304); Total Protein 6.8 G/DL (6.4-8.3)
[2018-10-18] MEDS ORDERED: KETOROLAC 30 MG/1 ML VIAL IV STA (06:50)
[2018-10-18] MEDS ORDERED: HYDROmorphone 2 MG/1 ML VIAL IV STA ×2 (08:20→11:11)
[2018-10-18] MEDS ORDERED: DIAZEPAM 10 MG/2 ML SYRINGE IV STA ×2 (08:21→11:11)
[2018-10-18] MEDS ORDERED: ACETAMINOPHEN 325 MG TABLET PO PRN (15:27)
[2018-10-18] MEDS ORDERED: PROMETHAZINE 25 MG/1 ML VIAL IM PRN (15:27)
[2018-10-18] MEDS ORDERED: ORPHENADRINE 60 MG/2 ML VIAL IM STA (15:32)
[2018-10-18] MEDS ORDERED: CLORAZEPATE 3.75 MG TABLET PO PRN (15:36)
[2018-10-18] MEDS ORDERED: BISACODYL 5 MG TABLET PO PRN (15:36)
[2018-10-18] MEDS: PANTOPRAZOLE 40 MG TABLET PO SCH (15:50)
[2018-10-18] MEDS: oxyCODONE/ACETAMINOPHEN 5-325 MG TABLET PO PRN (19:49)
[2018-10-18] MEDS ORDERED: Enzalutamide [Xtandi] 160 MG PO SCH (21:00)
[2018-10-18] MEDS: METOPROLOL TARTRATE 50 MG TABLET PO SCH (21:42)
[2018-10-18] MEDS: GABAPENTIN 100 MG CAPSULE PO SCH (21:42)
[2018-10-18] MEDS: ATORVASTATIN 40 MG TABLET PO SCH (21:42)
[2018-10-18] MEDS: HYDROmorphone 2 MG/1 ML VIAL IV PRN (21:42)
[2018-10-18] MEDS: DOCUSATE SODIUM 100 MG CAPSULE PO SCH (21:42)
[2018-10-18] MEDS: METAXALONE 800 MG TABLET PO SCH (22:18)
[2018-10-19] MEDS: HYDROmorphone 2 MG/1 ML VIAL IV PRN ×3 (01:30→21:26)
[2018-10-19] MEDS ORDERED: BENZOCAINE/MENTHOL LOZENGE 18/BOX PO PRN (03:01)
[2018-10-19 04:58] LABS: Basophils # 0.1 10*3/uL (0.0-0.2); Basophils % 0.7 % (0.0-0.8); Eosinophils # 0.5 10*3/uL (0.0-0.87); Hematocrit 34.3 VOL% (42.0-52.0); Hemoglobin 10.8 GM/DL (14.0-18.0); Immature Granulocytes % 0.7 %; Immature Granulocytes Absolute 0.06 #; Lymphocytes # 2.3 10*3/uL (1.4-4.0); Lymphocytes % 25.8 % (21.2-54.2); Mean Corpuscular HGB Conc 31.5 GM/DL (32-36); Mean Corpuscular Volume 92.7 FL (87-102); Mean Platelet Volume 8.9 FL (9.6-12.0); Monocytes % 7.6 % (1.7-12.7); Neutrophils % 60.2 % (38.7-73.9); Platelet Count 575 T/CUMM (130-400); Red Cell Distribution Width 13.2 % (9.3-17.3)
[2018-10-19 05:13] LABS: Calcium 9.9 MG/DL (8.5-10.1); Osmolality,Calculated 276.8 MOS/KG (273-304)
[2018-10-19] MEDS: METOPROLOL TARTRATE 50 MG TABLET PO SCH ×2 (08:55→20:23)
[2018-10-19] MEDS: METAXALONE 800 MG TABLET PO SCH ×3 (08:55→21:27)
[2018-10-19] MEDS: FUROSEMIDE 40 MG TABLET PO SCH (08:55)
[2018-10-19] MEDS: CLOPIDOGREL 75 MG TABLET PO SCH (08:55)
[2018-10-19] MEDS: PANTOPRAZOLE 40 MG TABLET PO SCH (08:55)
[2018-10-19] MEDS: ASPIRIN EC 325 MG TABLET PO SCH (08:55)
[2018-10-19] MEDS: DOCUSATE SODIUM 100 MG CAPSULE PO SCH ×2 (08:55→20:23)
[2018-10-19] MEDS: GABAPENTIN 100 MG CAPSULE PO SCH ×3 (08:55→20:23)
[2018-10-19] MEDS: NICOTINE 21 MG/24 HR PATCH TRANSDERM SCH (08:56)
[2018-10-19] MEDS: oxyCODONE/ACETAMINOPHEN 5-325 MG TABLET PO PRN ×2 (09:04→15:09)
[2018-10-19] MEDS: ATORVASTATIN 40 MG TABLET PO SCH (20:23)
[2018-10-20] MEDS: HYDROmorphone 2 MG/1 ML VIAL IV PRN ×3 (02:04→09:32)
[2018-10-20] MEDS: METAXALONE 800 MG TABLET PO SCH ×2 (09:31→16:40)
[2018-10-20] MEDS: GABAPENTIN 100 MG CAPSULE PO SCH ×2 (09:31→16:40)
[2018-10-20] MEDS: FUROSEMIDE 40 MG TABLET PO SCH (09:31)
[2018-10-20] MEDS: PANTOPRAZOLE 40 MG TABLET PO SCH (09:32)
[2018-10-20] MEDS: DOCUSATE SODIUM 100 MG CAPSULE PO SCH (09:32)
[2018-10-20] MEDS: METOPROLOL TARTRATE 50 MG TABLET PO SCH (09:32)
[2018-10-20] MEDS: ASPIRIN EC 325 MG TABLET PO SCH (09:32)
[2018-10-20] MEDS: CLOPIDOGREL 75 MG TABLET PO SCH (09:32)
[2018-10-20] MEDS ORDERED: BUPIVACAINE 0.75% 10 ML VIAL MISC INJ ONE (11:47)
[2018-10-20] MEDS ORDERED: BETAMETH SODIUM PHOS/ACETATE 30 MG/5 ML VIAL IM ONE (11:49)
[2018-10-20] MEDS: NICOTINE 21 MG/24 HR PATCH TRANSDERM SCH (13:06)
[2018-10-20 16:22] VITALS: BP 123/75
[2018-10-20] MEDS: oxyCODONE/ACETAMINOPHEN 5-325 MG TABLET PO PRN (16:40)
== END 2018-10-20 19:00 | disposition home or self-care (01) ==
LOC: N.ED 04:26 → N.EDINP 04:26 → N.2E 18:17
PROVIDERS: ADMIT Internal Medicine; ATTEND Internal Medicine

== ENCOUNTER 2019-01-25 09:47 | Observation (INO) ==
[2019-01-25] MEDS ORDERED: ASPIRIN 325 MG TABLET PO STA (10:36)
[2019-01-25 10:45] LABS: Basophils % 0.7 % (0.0-0.8); Eosinophils # 0.2 10*3/uL (0.0-0.87); Eosinophils % 3.6 % (0.00-10.9); Hematocrit 41.7 VOL% (42.0-52.0); Hemoglobin 13.4 GM/DL (14.0-18.0); Immature Granulocytes % 0.2 %; Immature Granulocytes Absolute 0.01 #; Lymphocytes # 2.2 10*3/uL (1.4-4.0); Mean Corpuscular HGB Conc 32.1 GM/DL (32-36); Mean Corpuscular Volume 90.5 FL (87-102); Mean Platelet Volume 9.2 FL (9.6-12.0); Monocytes % 13.5 % (1.7-12.7); Platelet Count 247 T/CUMM (130-400); Red Blood Count 4.61 MC/CUMM (3.8-5.5); Red Cell Distribution Width 13.3 % (9.3-17.3); White Blood Count 5.8 T/CUMM (4-12)
[2019-01-25 10:48] LABS: Apearance,Urine CLEAR (Clear); Bilirubin,Urine Negative (Negative); Blood, Urine Negative (Negative); Glucose,Urine (UA) Negative (Negative); Ketones,Urine Negative (Negative); Mucus,Urine Occasional /LPF (Occasional); Nitrite,Urine Negative (Negative); Protein,Urine Negative; Urine Color Colorless (Yellow); Urine Specific Gravity 1.005 (1.001-1.035); Urine Urobilinogen < 2.0 EU/DL (0.2-1.0); WBC,Urine <1 /HPF (0-6)
[2019-01-25 11:02] LABS: Albumin 3.8 G/DL (3.4-5.0); Bilirubin,Total 0.6 MG/DL (0.2-1.0); Calcium 9.3 MG/DL (8.5-10.1); Osmolality,Calculated 283.1 MOS/KG (273-304); Total Protein 6.9 G/DL (6.4-8.3)
[2019-01-25] MEDS ORDERED: ONDANSETRON 4 MG/2 ML VIAL IV PRN (13:05)
[2019-01-25] MEDS ORDERED: ACETAMINOPHEN 325 MG TABLET PO PRN (13:05)
[2019-01-25] MEDS ORDERED: LACTULOSE 20 GM/30 ML UDCUP PO PRN (13:05)
[2019-01-25] MEDS ORDERED: ENOXAPARIN 40 MG/0.4 ML SYRINGE SUBCUT SCH (13:30)
[2019-01-25 14:41] LABS: Risk Ratio 2.97; Thyroid Stimulating Hormone 1.35 uIU/ml (0.358-3.74); VLDL CHOLESTEROL 23.2 MG/DL
[2019-01-25] MEDS ORDERED: Enzalutamide [Xtandi] 160 MG PO SCH (21:00)
[2019-01-25] MEDS ORDERED: ATORVASTATIN 40 MG TABLET PO SCH (21:00)
[2019-01-25] MEDS: METOPROLOL TARTRATE 50 MG TABLET PO SCH (21:09)
[2019-01-25] MEDS: DOCUSATE SODIUM 100 MG CAPSULE PO SCH (21:10)
[2019-01-26 05:58] LABS: Basophils % 0.6 % (0.0-0.8); Eosinophils # 0.2 10*3/uL (0.0-0.87); Eosinophils % 3.8 % (0.00-10.9); Hematocrit 39.3 VOL% (42.0-52.0); Hemoglobin 12.9 GM/DL (14.0-18.0); Immature Granulocytes % 0.2 %; Immature Granulocytes Absolute 0.01 #; Lymphocytes # 1.8 10*3/uL (1.4-4.0); Lymphocytes % 36.4 % (21.2-54.2); Mean Corpuscular HGB Conc 32.8 GM/DL (32-36); Mean Corpuscular Volume 90.8 FL (87-102); Mean Platelet Volume 9.2 FL (9.6-12.0); Monocytes % 12.6 % (1.7-12.7); Neutrophils % 46.4 % (38.7-73.9); Platelet Count 214 T/CUMM (130-400); Red Blood Count 4.33 MC/CUMM (3.8-5.5); Red Cell Distribution Width 13.2 % (9.3-17.3); White Blood Count 4.9 T/CUMM (4-12)
[2019-01-26 05:59] LABS: Calcium 8.9 MG/DL (8.5-10.1); Osmolality,Calculated 289.7 MOS/KG (273-304)
[2019-01-26] MEDS ORDERED: FUROSEMIDE 40 MG TABLET PO SCH (09:00)
[2019-01-26] MEDS ORDERED: CLOPIDOGREL 75 MG TABLET PO SCH (09:00)
[2019-01-26] MEDS ORDERED: ASPIRIN EC 81 MG TABLET PO SCH (09:00)
[2019-01-26] MEDS ORDERED: PANTOPRAZOLE 40 MG TABLET PO SCH (09:00)
[2019-01-26] MEDS: DOCUSATE SODIUM 100 MG CAPSULE PO SCH (14:42)
[2019-01-26] MEDS: METOPROLOL TARTRATE 50 MG TABLET PO SCH (14:43)
[2019-01-26 16:49] VITALS: BP 127/78
== END 2019-01-26 19:52 | disposition home or self-care (01) ==
LOC: N.ED 09:47 → N.EDINP 09:47 → N.TELES 13:41
PROVIDERS: ADMIT Hospitalist; ATTEND Hospitalist

== ENCOUNTER 2019-07-08 22:53 | Observation (INO) ==
[2019-07-09 01:13] LABS: Basophils % 0.5 % (0.0-0.8); Eosinophils # 0.1 10*3/uL (0.0-0.87); Eosinophils % 3.2 % (0.00-10.9); Hematocrit 36.9 VOL% (42.0-52.0); Hemoglobin 12.3 GM/DL (14.0-18.0); Immature Granulocytes % 0.2 %; Immature Granulocytes Absolute 0.01 #; Lymphocytes % 24.2 % (21.2-54.2); Mean Corpuscular HGB Conc 33.3 GM/DL (32-36); Mean Corpuscular Volume 99.7 FL (87-102); Mean Platelet Volume 8.9 FL (9.6-12.0); Monocytes % 13.5 % (1.7-12.7); Neutrophils % 58.4 % (38.7-73.9); Platelet Count 194 T/CUMM (130-400); Red Cell Distribution Width 12.3 % (9.3-17.3)
[2019-07-09] MEDS ORDERED: ALUMINUM/MAGNES/SIMETH MAX STR 30 ML UDCUP PO PRN (01:20)
[2019-07-09] MEDS ORDERED: ONDANSETRON 4 MG/2 ML VIAL IV PRN (01:20)
[2019-07-09] MEDS ORDERED: ACETAMINOPHEN 325 MG TABLET PO PRN (01:20)
[2019-07-09] MEDS ORDERED: ALBUTEROL/IPRATROPIUM 3 ML NEB RESP TX PRN (01:20)
[2019-07-09] MEDS ORDERED: diphenhydrAMINE CAP 25 MG CAPSULE PO PRN (01:20)
[2019-07-09] MEDS ORDERED: NICOTINE 21 MG/24 HR PATCH TRANSDERM PRN (01:20)
[2019-07-09] MEDS ORDERED: MORPHINE 4 MG/1 ML VIAL IV PRN (01:20)
[2019-07-09] MEDS ORDERED: hydrALAZINE 20 MG/1 ML VIAL IV PRN (01:20)
[2019-07-09 01:30] LABS: Calcium 8.7 MG/DL (8.5-10.1); Osmolality,Calculated 288.8 MOS/KG (273-304)
[2019-07-09] MEDS ORDERED: ENOXAPARIN 100 MG/ML SYRINGE SUBCUT ONE (01:30)
[2019-07-09 01:51] LABS: Risk Ratio 2.78; Thyroid Stimulating Hormone 5.51 uIU/ml (0.358-3.74); VLDL CHOLESTEROL 45.4 MG/DL
[2019-07-09 07:26] LABS: Free T4 (Free Thyroxine) 1.19 NG/DL (0.76-1.46)
[2019-07-09] MEDS ORDERED: CLOPIDOGREL 75 MG TABLET PO SCH (09:00)
[2019-07-09] MEDS ORDERED: METOPROLOL TARTRATE 50 MG TABLET PO SCH (09:00)
[2019-07-09] MEDS ORDERED: ASPIRIN EC 81 MG TABLET PO SCH (09:00)
[2019-07-09] MEDS ORDERED: POTASSIUM CHLORIDE 20 MEQ PACK PO ONE (10:18)
[2019-07-09 11:47] VITALS: BP 113/67
[2019-07-09] MEDS ORDERED: ENOXAPARIN 100 MG/ML SYRINGE SUBCUT SCH (13:00)
[2019-07-09] MEDS ORDERED: Enzalutamide [Xtandi] 160 MG PO SCH (21:00)
[2019-07-09] MEDS ORDERED: ATORVASTATIN 40 MG TABLET PO SCH (21:00)
[2019-07-09] MEDS ORDERED: DOCUSATE SODIUM 100 MG CAPSULE PO SCH (21:00)
[2019-07-10] MEDS ORDERED: FUROSEMIDE 40 MG TABLET PO SCH (09:00)
== END 2019-07-09 17:10 | disposition home or self-care (01) ==
LOC: N.TELES 07-09 00:22 → INTOOBSV 07-09 00:22 → SUATTDRO 07-09 00:22
PROVIDERS: ADMIT Internal Medicine; ATTEND Family Medicine

== ENCOUNTER 2021-02-12 12:38 | Inpatient (IN) ==
[2021-02-12 15:48] LABS: Basophils % 0.1 % (0.0-0.8); Hematocrit 28.1 VOL% (42.0-52.0); Hemoglobin 8.7 GM/DL (14.0-18.0); Immature Granulocytes % 2.6 %; Immature Granulocytes Absolute 0.32 #; Lymphocytes # 0.3 10*3/uL (1.4-4.0); Lymphocytes % 2.7 % (21.2-54.2); Mean Corpuscular Volume 96.6 FL (87-102); Mean Platelet Volume 9.5 FL (9.6-12.0); Monocytes % 1.5 % (1.7-12.7); NRBC # 0.06 10*3/uL; Neutrophils % 93.1 % (38.7-73.9); Platelet Count 202 T/CUMM (130-400); Red Blood Count 2.91 MC/CUMM (3.8-5.5); Red Cell Distribution Width 18.3 % (9.3-17.3); White Blood Count 12.3 T/CUMM (4-12)
[2021-02-12 16:11] LABS: Band Neutrophils 11 % (0-10); Lymphocytes 3 % (20-55); Platelet Estimate Normal; Segmented Neutrophils 83 % (50-85); Total Cells Counted 100
[2021-02-12 16:12] LABS: Anisocytosis 2+; Misc Morphology 5S; Polychromasia Slight
[2021-02-12 16:24] LABS: Bilirubin,Total 0.8 MG/DL (0.20-1.00); Calcium 8.9 MG/DL (8.5-10.1); Osmolality,Calculated 269.4 MOS/KG (273-304); Potassium 4.2 MMOL/L (3.5-5.1); Total Protein 6.8 G/DL (6.4-8.2)
[2021-02-12] MEDS ORDERED: DOCUSATE SODIUM 100 MG CAPSULE PO PRN (16:37)
[2021-02-12] MEDS ORDERED: DEXTROSE 50% 25 GM/50 ML VIAL IV PRN (16:37)
[2021-02-12] MEDS ORDERED: ONDANSETRON 4 MG/2 ML VIAL IV PRN (16:37)
[2021-02-12] MEDS ORDERED: hydrALAZINE 20 MG/1 ML VIAL IV PRN (16:37)
[2021-02-12] MEDS ORDERED: ALBUTEROL 2.5 MG/3 ML NEB RESP TX PRN (16:37)
[2021-02-12] MEDS ORDERED: GLUCAGON 1 MG VIAL IM PRN (16:37)
[2021-02-12] MEDS ORDERED: ACETAMINOPHEN 325 MG TABLET PO PRN (16:37)
[2021-02-12] MEDS ORDERED: LINEZOLID INJ 600 MG/300 ML PREMIX IV SCH ×2 (17:00→17:30)
[2021-02-13 05:02] LABS: Basophils % 0.2 % (0.0-0.8); Eosinophils % 0.1 % (0.00-10.9); Hematocrit 25.9 VOL% (42.0-52.0); Hemoglobin 8.1 GM/DL (14.0-18.0); Immature Granulocytes Absolute 0.21 #; Lymphocytes # 0.3 10*3/uL (1.4-4.0); Mean Corpuscular HGB Conc 31.3 GM/DL (32-36); Mean Platelet Volume 9.5 FL (9.6-12.0); Monocytes % 0.8 % (1.7-12.7); NRBC # 0.04 10*3/uL; Neutrophils % 93.9 % (38.7-73.9); Platelet Count 168 T/CUMM (130-400); Red Blood Count 2.67 MC/CUMM (3.8-5.5); White Blood Count 10.6 T/CUMM (4-12)
[2021-02-13 05:20] LABS: Albumin 1.7 G/DL (3.4-5.0); Bilirubin,Total 0.9 MG/DL (0.20-1.00); Calcium 7.7 MG/DL (8.5-10.1); Osmolality,Calculated 269.2 MOS/KG (273-304); Potassium 3.2 MMOL/L (3.5-5.1); Total Protein 5.1 G/DL (6.4-8.2)
[2021-02-13 05:35] LABS: Hypochromasia Slight; Lymphocytes 2 % (20-55); Platelet Estimate Normal; Segmented Neutrophils 97 % (50-85); Total Cells Counted 100
[2021-02-13] MEDS: VANCOMYCIN INJ 1,000 MG in SODIUM CHLORIDE 0.9% 250 ML IV SCH ×3 (06:02→19:22)
[2021-02-13] MEDS: CLINDAMYCIN INJ 600 MG/50 ML PREMIX IV SCH ×4 (06:03→18:29)
[2021-02-13] MEDS: PANTOPRAZOLE 40 MG TABLET PO SCH (09:11)
[2021-02-13] MEDS: ENOXAPARIN 40 MG/0.4 ML SYRINGE SUBCUT SCH (18:30)
[2021-02-13] MEDS: ATORVASTATIN 40 MG TABLET PO SCH (20:27)
[2021-02-13] MEDS: DEXAMETHASONE 4 MG TABLET PO SCH (20:27)
[2021-02-13] MEDS: oxyCODONE/ACETAMINOPHEN 5-325 MG TABLET PO PRN (20:28)
[2021-02-13] MEDS: METOPROLOL TARTRATE 50 MG TABLET PO SCH (20:29)
[2021-02-14] MEDS: CLINDAMYCIN INJ 600 MG/50 ML PREMIX IV SCH ×3 (01:12→18:30)
[2021-02-14] MEDS: VANCOMYCIN INJ 1,000 MG in SODIUM CHLORIDE 0.9% 250 ML IV SCH ×2 (05:05→19:24)
[2021-02-14 05:27] LABS: Basophils % 0.1 % (0.0-0.8); Hematocrit 24.3 VOL% (42.0-52.0); Hemoglobin 7.6 GM/DL (14.0-18.0); Immature Granulocytes % 2.3 %; Immature Granulocytes Absolute 0.34 #; Lymphocytes # 0.2 10*3/uL (1.4-4.0); Lymphocytes % 1.6 % (21.2-54.2); Mean Corpuscular HGB Conc 31.3 GM/DL (32-36); Mean Corpuscular Volume 97.2 FL (87-102); Mean Platelet Volume 9.7 FL (9.6-12.0); Monocytes % 0.8 % (1.7-12.7); Neutrophils % 95.2 % (38.7-73.9); Platelet Count 167 T/CUMM (130-400); Red Cell Distribution Width 17.9 % (9.3-17.3); White Blood Count 14.7 T/CUMM (4-12)
[2021-02-14 05:46] LABS: Calcium 7.7 MG/DL (8.5-10.1); Osmolality,Calculated 277.8 MOS/KG (273-304); Potassium 3.3 MMOL/L (3.5-5.1)
[2021-02-14 05:50] LABS: Band Neutrophils 4 % (0-10); Hypochromasia Slight; Lymphocytes 1 % (20-55); Microcytosis 1+; Ovalocytes Few; Platelet Estimate Adequate; Polychromasia Slight; Segmented Neutrophils 94 % (50-85); Total Cells Counted 100
[2021-02-14] MEDS: METOPROLOL TARTRATE 50 MG TABLET PO SCH ×2 (10:29→20:15)
[2021-02-14] MEDS: DEXAMETHASONE 4 MG TABLET PO SCH ×2 (10:29→20:14)
[2021-02-14] MEDS: ASPIRIN EC 81 MG TABLET PO SCH (10:29)
[2021-02-14] MEDS: oxyCODONE/ACETAMINOPHEN 5-325 MG TABLET PO PRN ×2 (10:30→20:14)
[2021-02-14] MEDS: PANTOPRAZOLE 40 MG TABLET PO SCH (10:36)
[2021-02-14] MEDS ORDERED: POTASSIUM CHLORIDE 20 MEQ TABLET PO PRN (16:53)
[2021-02-14] MEDS: ENOXAPARIN 40 MG/0.4 ML SYRINGE SUBCUT SCH ×2 (19:51→20:14)
[2021-02-14] MEDS: ATORVASTATIN 40 MG TABLET PO SCH (20:14)
[2021-02-15] MEDS: CLINDAMYCIN INJ 600 MG/50 ML PREMIX IV SCH ×3 (01:30→20:32)
[2021-02-15] MEDS: VANCOMYCIN INJ 1,000 MG in SODIUM CHLORIDE 0.9% 250 ML IV SCH (05:13)
[2021-02-15 06:32] LABS: Basophils % 0.2 % (0.0-0.8); Hematocrit 23.6 VOL% (42.0-52.0); Hemoglobin 7.4 GM/DL (14.0-18.0); Immature Granulocytes % 1.8 %; Immature Granulocytes Absolute 0.28 #; Lymphocytes # 0.3 10*3/uL (1.4-4.0); Lymphocytes % 2.1 % (21.2-54.2); Mean Corpuscular HGB Conc 31.4 GM/DL (32-36); Mean Corpuscular Volume 95.5 FL (87-102); Mean Platelet Volume 9.8 FL (9.6-12.0); Monocytes % 1.4 % (1.7-12.7); Neutrophils % 94.5 % (38.7-73.9); Platelet Count 162 T/CUMM (130-400); Red Blood Count 2.47 MC/CUMM (3.8-5.5); Red Cell Distribution Width 17.9 % (9.3-17.3); White Blood Count 15.6 T/CUMM (4-12)
[2021-02-15 06:58] LABS: Hypochromasia 1+; Lymphocytes 3 % (20-55); Microcytosis 1+; Ovalocytes Slight; Platelet Estimate Adequate; Segmented Neutrophils 94 % (50-85); Total Cells Counted 100
[2021-02-15 07:03] LABS: Calcium 7.8 MG/DL (8.5-10.1); Osmolality,Calculated 275.8 MOS/KG (273-304); Potassium 3.5 MMOL/L (3.5-5.1)
[2021-02-15] MEDS ORDERED: SODIUM CHLORIDE 0.9% 1,000 ML IV PRN (09:29)
[2021-02-15] MEDS: METOPROLOL TARTRATE 50 MG TABLET PO SCH ×2 (09:34→20:29)
[2021-02-15] MEDS: oxyCODONE/ACETAMINOPHEN 5-325 MG TABLET PO PRN ×2 (09:39→20:32)
[2021-02-15] MEDS: DEXAMETHASONE 4 MG TABLET PO SCH ×2 (09:40→20:29)
[2021-02-15] MEDS: PANTOPRAZOLE 40 MG TABLET PO SCH (09:40)
[2021-02-15] MEDS: ASPIRIN EC 81 MG TABLET PO SCH (09:41)
[2021-02-15] MEDS: ENOXAPARIN 40 MG/0.4 ML SYRINGE SUBCUT SCH (20:29)
[2021-02-15] MEDS: ATORVASTATIN 40 MG TABLET PO SCH (20:29)
[2021-02-16] MEDS: CLINDAMYCIN INJ 600 MG/50 ML PREMIX IV SCH ×3 (06:01→20:32)
[2021-02-16] MEDS: PANTOPRAZOLE 40 MG TABLET PO SCH (09:49)
[2021-02-16] MEDS: DEXAMETHASONE 4 MG TABLET PO SCH ×2 (09:49→20:32)
[2021-02-16] MEDS: METOPROLOL TARTRATE 50 MG TABLET PO SCH ×2 (09:49→20:32)
[2021-02-16] MEDS: ASPIRIN EC 81 MG TABLET PO SCH (09:49)
[2021-02-16 10:27] LABS: Basophils % 0.2 % (0.0-0.8); Eosinophils % 0.1 % (0.00-10.9); Hematocrit 29.3 VOL% (42.0-52.0); Immature Granulocytes % 1.7 %; Immature Granulocytes Absolute 0.23 #; Lymphocytes # 0.5 10*3/uL (1.4-4.0); Lymphocytes % 3.5 % (21.2-54.2); Mean Corpuscular HGB Conc 31.4 GM/DL (32-36); Mean Corpuscular Volume 93.9 FL (87-102); Mean Platelet Volume 9.8 FL (9.6-12.0); Monocytes % 2.1 % (1.7-12.7); NRBC # 0.07 10*3/uL; Neutrophils % 92.4 % (38.7-73.9); Platelet Count 163 T/CUMM (130-400); Red Cell Distribution Width 19.3 % (9.3-17.3); White Blood Count 13.2 T/CUMM (4-12)
[2021-02-16 10:28] LABS: Red Blood Count 3.12 MC/CUMM (3.8-5.5)
[2021-02-16 10:30] LABS: Hemoglobin 9.2 GM/DL (14.0-18.0)
[2021-02-16 10:50] LABS: Calcium 7.5 MG/DL (8.5-10.1); Potassium 3.8 MMOL/L (3.5-5.1)
[2021-02-16 11:39] LABS: Band Neutrophils 2 % (0-10); Hypochromasia 1+; Lymphocytes 1 % (20-55); Microcytosis 1+; Ovalocytes Slight; Segmented Neutrophils 94 % (50-85); Total Cells Counted 100
[2021-02-16 11:40] LABS: Platelet Estimate Adequate
[2021-02-16 17:08] LABS: % Iron Saturation 15.1 % (18-50)
[2021-02-16 17:15] LABS: Folate 6.42 NG/ML (5.38-24.0)
[2021-02-16] MEDS: ATORVASTATIN 40 MG TABLET PO SCH (20:32)
[2021-02-16] MEDS: oxyCODONE/ACETAMINOPHEN 5-325 MG TABLET PO PRN (20:32)
[2021-02-16] MEDS: ENOXAPARIN 40 MG/0.4 ML SYRINGE SUBCUT SCH (20:35)
[2021-02-17] MEDS: CLINDAMYCIN INJ 600 MG/50 ML PREMIX IV SCH ×3 (04:19→21:05)
[2021-02-17] MEDS: oxyCODONE/ACETAMINOPHEN 5-325 MG TABLET PO PRN ×3 (04:20→18:27)
[2021-02-17 05:19] LABS: Basophils % 0.1 % (0.0-0.8); Hematocrit 27.4 VOL% (42.0-52.0); Hemoglobin 8.6 GM/DL (14.0-18.0); Immature Granulocytes % 3.5 %; Immature Granulocytes Absolute 0.28 #; Lymphocytes # 0.4 10*3/uL (1.4-4.0); Lymphocytes % 5.2 % (21.2-54.2); Mean Corpuscular HGB Conc 31.4 GM/DL (32-36); Mean Corpuscular Volume 93.8 FL (87-102); Monocytes % 2.2 % (1.7-12.7); NRBC # 0.05 10*3/uL; Platelet Count 140 T/CUMM (130-400); Red Blood Count 2.92 MC/CUMM (3.8-5.5); Red Cell Distribution Width 19.7 % (9.3-17.3); White Blood Count 8.1 T/CUMM (4-12)
[2021-02-17 05:38] LABS: Calcium 7.6 MG/DL (8.5-10.1); Osmolality,Calculated 282.4 MOS/KG (273-304); Potassium 3.4 MMOL/L (3.5-5.1); Risk Ratio 9.5; VLDL Cholesterol 29.4 MG/DL
[2021-02-17 06:35] LABS: Band Neutrophils 1 % (0-10); Eosinophils 1 % (0-10); Lymphocytes 5 % (20-55); Nucleated Red Blood Cells 1 (0-5); Segmented Neutrophils 90 % (50-85); Total Cells Counted 100
[2021-02-17 06:36] LABS: Hypochromasia 1+; Platelet Estimate Normal
[2021-02-17 06:37] LABS: Ovalocytes 1+; Polychromasia Few
[2021-02-17] MEDS: DEXAMETHASONE 4 MG TABLET PO SCH ×2 (09:30→21:07)
[2021-02-17] MEDS: METOPROLOL TARTRATE 50 MG TABLET PO SCH ×2 (09:30→21:07)
[2021-02-17] MEDS: ASPIRIN EC 81 MG TABLET PO SCH (09:30)
[2021-02-17] MEDS: PANTOPRAZOLE 40 MG TABLET PO SCH (09:30)
[2021-02-17] MEDS ORDERED: POTASSIUM CHLORIDE 20 MEQ TABLET PO ONE (14:45)
[2021-02-17] MEDS: ATORVASTATIN 40 MG TABLET PO SCH (21:07)
[2021-02-17] MEDS: ENOXAPARIN 40 MG/0.4 ML SYRINGE SUBCUT SCH (21:07)
[2021-02-18] MEDS: CLINDAMYCIN INJ 600 MG/50 ML PREMIX IV SCH ×2 (04:30→13:37)
[2021-02-18] MEDS: oxyCODONE/ACETAMINOPHEN 5-325 MG TABLET PO PRN ×3 (06:10→20:36)
[2021-02-18] MEDS: METOPROLOL TARTRATE 50 MG TABLET PO SCH ×2 (09:12→20:36)
[2021-02-18] MEDS: PANTOPRAZOLE 40 MG TABLET PO SCH (09:12)
[2021-02-18] MEDS: ASPIRIN EC 81 MG TABLET PO SCH (09:12)
[2021-02-18] MEDS: DEXAMETHASONE 4 MG TABLET PO SCH ×2 (09:12→20:36)
[2021-02-18] MEDS ORDERED: MAGNESIUM SULF RIDER 4 GM/100 ML PREMIX IV PRN (18:46)
[2021-02-18] MEDS ORDERED: MAGNESIUM SULF RIDER 2 GM/50 ML PREMIX IV PRN (18:46)
[2021-02-18] MEDS: BACILLUS COAGULANS CAPLET PO SCH (20:36)
[2021-02-18] MEDS: ATORVASTATIN 40 MG TABLET PO SCH (20:36)
[2021-02-18] MEDS: ENOXAPARIN 40 MG/0.4 ML SYRINGE SUBCUT SCH (20:37)
[2021-02-18] MEDS: CLINDAMYCIN 300 MG CAPSULE PO SCH (21:32)
[2021-02-19] MEDS: CLINDAMYCIN 300 MG CAPSULE PO SCH ×3 (06:03→21:10)
[2021-02-19 07:08] LABS: Basophils % 0.2 % (0.0-0.8); Hematocrit 31.4 VOL% (42.0-52.0); Hemoglobin 9.6 GM/DL (14.0-18.0); Immature Granulocytes % 5.3 %; Lymphocytes # 0.4 10*3/uL (1.4-4.0); Lymphocytes % 6.2 % (21.2-54.2); Mean Corpuscular HGB Conc 30.6 GM/DL (32-36); Mean Corpuscular Volume 96.9 FL (87-102); Mean Platelet Volume 10.1 FL (9.6-12.0); NRBC # 0.02 10*3/uL; Neutrophils % 85.3 % (38.7-73.9); Platelet Count 135 T/CUMM (130-400); Red Blood Count 3.24 MC/CUMM (3.8-5.5); Red Cell Distribution Width 19.7 % (9.3-17.3); White Blood Count 5.7 T/CUMM (4-12)
[2021-02-19 07:34] LABS: Calcium 7.9 MG/DL (8.5-10.1); Osmolality,Calculated 281.4 MOS/KG (273-304); Potassium 4.2 MMOL/L (3.5-5.1)
[2021-02-19 07:42] LABS: Hypochromasia 1+; Lymphocytes 4 % (20-55); Microcytosis 1+; Nucleated Red Blood Cells 1 (0-5); Platelet Estimate Normal; Segmented Neutrophils 94 % (50-85); Total Cells Counted 100
[2021-02-19] MEDS: BACILLUS COAGULANS CAPLET PO SCH ×2 (09:32→21:10)
[2021-02-19] MEDS: DEXAMETHASONE 4 MG TABLET PO SCH ×2 (09:33→21:11)
[2021-02-19] MEDS: PANTOPRAZOLE 40 MG TABLET PO SCH (09:33)
[2021-02-19] MEDS: METOPROLOL TARTRATE 50 MG TABLET PO SCH ×2 (09:33→21:27)
[2021-02-19] MEDS: ASPIRIN EC 81 MG TABLET PO SCH (09:33)
[2021-02-19] MEDS: oxyCODONE/ACETAMINOPHEN 5-325 MG TABLET PO PRN ×3 (09:35→21:12)
[2021-02-19] MEDS: ENOXAPARIN 40 MG/0.4 ML SYRINGE SUBCUT SCH (21:11)
[2021-02-19] MEDS: ATORVASTATIN 40 MG TABLET PO SCH (21:11)
[2021-02-20] MEDS: CLINDAMYCIN 300 MG CAPSULE PO SCH ×2 (06:04→14:42)
[2021-02-20] MEDS: DEXAMETHASONE 4 MG TABLET PO SCH (09:18)
[2021-02-20] MEDS: ASPIRIN EC 81 MG TABLET PO SCH (09:18)
[2021-02-20] MEDS: PANTOPRAZOLE 40 MG TABLET PO SCH (09:18)
[2021-02-20] MEDS: BACILLUS COAGULANS CAPLET PO SCH (09:18)
[2021-02-20] MEDS: METOPROLOL TARTRATE 50 MG TABLET PO SCH (09:18)
[2021-02-20] MEDS ORDERED: TUBERCULIN SKIN TEST 0.1 ML SYRINGE INTRADERM ONE (09:47)
[2021-02-20 11:05] VITALS: BP 107/70
[2021-02-20] MEDS ORDERED: HEPARIN LOCK FLUSH 500 UNIT/5 ML SYRINGE IV ONE (12:45)
== END 2021-02-20 15:45 | DRG 603 ==
LOC: N.ED 12:38 → N.4E 12:38 → SUATTDRO 16:37 → N.4E 21:18 → SUATTDRO 02-14 17:12
PROVIDERS: ADMIT Internal Medicine; ATTEND Internal Medicine

== ENCOUNTER 2021-05-14 12:28 | Inpatient (IN) ==
[2021-05-14 15:14] LABS: Immature Granulocytes Absolute 0.05 #; Lymphocytes # 0.4 10*3/uL (1.4-4.0); Lymphocytes % 16.8 % (21.2-54.2); Mean Corpuscular HGB Conc 32.3 GM/DL (32-36); Mean Corpuscular Volume 105.9 FL (87-102); Mean Platelet Volume 12.1 FL (9.6-12.0); Monocytes % 4.8 % (1.7-12.7); NRBC # 0.16 10*3/uL; Neutrophils % 76.4 % (38.7-73.9); Red Blood Count 1.52 MC/CUMM (3.8-5.5); White Blood Count 2.5 T/CUMM (4-12)
[2021-05-14 15:17] LABS: Hematocrit 16.1 VOL% (42.0-52.0); Hemoglobin 5.2 GM/DL (14.0-18.0); Platelet Count 16 T/CUMM (130-400)
[2021-05-14] MEDS ORDERED: SODIUM CHLORIDE 0.9% 1,000 ML IV PRN ×2 (15:23→15:58)
[2021-05-14 15:42] LABS: Lymphocytes 14 % (20-55); Nucleated Red Blood Cells 7 (0-5); Segmented Neutrophils 82 % (50-85); Total Cells Counted 100
[2021-05-14 15:43] LABS: Anisocytosis 1+; Platelet Estimate Decreased
[2021-05-14 15:44] LABS: Microcytosis 1+; Polychromasia Slight
[2021-05-14 15:45] LABS: Albumin 2.7 G/DL (3.4-5.0); Bilirubin,Total 0.9 MG/DL (0.20-1.00); Calcium 8.7 MG/DL (8.5-10.1); Osmolality,Calculated 285.5 MOS/KG (273-304); Potassium 3.2 MMOL/L (3.5-5.1); Total Protein 5.3 G/DL (6.4-8.2)
[2021-05-14] MEDS ORDERED: ONDANSETRON 4 MG/2 ML VIAL IV PRN (16:55)
[2021-05-14] MEDS ORDERED: DEXTROSE 50% 25 GM/50 ML SYRINGE IV PRN (16:55)
[2021-05-14] MEDS ORDERED: GLUCAGON 1 MG VIAL IM PRN (16:55)
[2021-05-14] MEDS ORDERED: ACETAMINOPHEN 325 MG TABLET PO PRN (16:55)
[2021-05-14] MEDS ORDERED: DOCUSATE SODIUM 100 MG CAPSULE PO PRN (16:55)
[2021-05-14] MEDS ORDERED: ALUMINUM/MAGNES/SIMETH MAX STR 30 ML UDCUP PO PRN (16:55)
[2021-05-14] MEDS ORDERED: LACTATED RINGERS 1,000 ML IV SCH (17:00)
[2021-05-14] MEDS ORDERED: ALBUTEROL 2.5 MG/3 ML NEB RESP TX PRN (21:01)
[2021-05-14 21:21] LABS: Hematocrit 22.5 VOL% (42.0-52.0); Hemoglobin 7.4 GM/DL (14.0-18.0)
[2021-05-14 21:22] LABS: Folate 13.52 NG/ML (5.38-24.0)
[2021-05-14 21:29] LABS: PT Patient Result 10.9 SECS (10.5-12.0)
[2021-05-14 21:42] LABS: % Iron Saturation 45.7 % (18-50)
[2021-05-14] MEDS: FAMOTIDINE 20 MG/2 ML VIAL IV SCH (23:22)
[2021-05-14] MEDS: INSULIN LISPRO 100 UNIT/ML SUBCUT SCH (23:24)
[2021-05-14] MEDS: LACTATED RINGERS 1,000 ML IV SCH (23:25)
[2021-05-14] MEDS: DOXYCYCLINE HYCLATE INJ 100 MG in SODIUM CHLORIDE 0.9% 100 ML IV SCH (23:25)
[2021-05-15 05:12] LABS: Basophils % 0.5 % (0.0-0.8); Hematocrit 23.7 VOL% (42.0-52.0); Hemoglobin 7.9 GM/DL (14.0-18.0); Immature Granulocytes % 4.2 %; Immature Granulocytes Absolute 0.08 #; Lymphocytes # 0.3 10*3/uL (1.4-4.0); Lymphocytes % 13.1 % (21.2-54.2); Mean Corpuscular HGB Conc 33.3 GM/DL (32-36); Mean Corpuscular Volume 99.2 FL (87-102); Mean Platelet Volume 12.4 FL (9.6-12.0); Monocytes % 4.7 % (1.7-12.7); NRBC # 0.09 10*3/uL; Neutrophils % 77.5 % (38.7-73.9); Red Blood Count 2.39 MC/CUMM (3.8-5.5); Red Cell Distribution Width 20.2 % (9.3-17.3); White Blood Count 1.9 T/CUMM (4-12)
[2021-05-15 05:17] LABS: Platelet Count 12 T/CUMM (130-400)
[2021-05-15 05:41] LABS: Albumin 2.2 G/DL (3.4-5.0); Calcium 8.6 MG/DL (8.5-10.1); Hypochromia 1+; Lymphocytes 11 % (20-55); Microcytosis 1+; Nucleated Red Blood Cells 11 (0-5); Osmolality,Calculated 279.7 MOS/KG (273-304); Platelet Estimate Decreased; Potassium 3.3 MMOL/L (3.5-5.1); Segmented Neutrophils 84 % (50-85); Total Cells Counted 100; Total Protein 4.9 G/DL (6.4-8.2)
[2021-05-15] MEDS: DOCUSATE SODIUM 100 MG CAPSULE PO SCH ×3 (12:31→21:17)
[2021-05-15] MEDS: POLYETHYLENE GLYCOL POWDER 17 GM PACK PO SCH (12:31)
[2021-05-15] MEDS: INSULIN LISPRO 100 UNIT/ML SUBCUT SCH ×3 (12:42→22:05)
[2021-05-15] MEDS: DEXAMETHASONE 4 MG TABLET PO SCH (12:43)
[2021-05-15] MEDS: FAMOTIDINE 20 MG/2 ML VIAL IV SCH ×2 (12:44→21:05)
[2021-05-15] MEDS: DOXYCYCLINE HYCLATE INJ 100 MG in SODIUM CHLORIDE 0.9% 100 ML IV SCH ×2 (12:52→21:05)
[2021-05-15 13:39] LABS: Hematocrit 23.7 VOL% (42.0-52.0); Hemoglobin 7.9 GM/DL (14.0-18.0)
[2021-05-15] MEDS: LACTATED RINGERS 1,000 ML IV SCH (14:18)
[2021-05-15] MEDS ORDERED: SODIUM CHLORIDE 0.9% 1,000 ML IV PRN (15:25)
[2021-05-15] MEDS: POTASSIUM CHLORIDE 20 MEQ TABLET PO PRN ×2 (18:58→21:05)
[2021-05-15 19:48] LABS: Bilirubin,Urine Negative (Negative); Blood, Urine Negative (Negative); Glucose,Urine (UA) Negative (Negative); Ketones,Urine Negative (Negative); Mucus,Urine Occasional /LPF (Occasional); Nitrite,Urine Negative (Negative); Protein,Urine Negative; RBC,Urine 2 /HPF (0-4); Urine Appearance CLEAR (Clear); Urine Color Yellow (Yellow); Urine Specific Gravity 1.018 (1.001-1.035)
[2021-05-15 20:45] LABS: Hematocrit 22.8 VOL% (42.0-52.0); Hemoglobin 7.6 GM/DL (14.0-18.0)
[2021-05-15] MEDS: ATORVASTATIN 40 MG TABLET PO SCH (20:58)
[2021-05-16] MEDS: POTASSIUM CHLORIDE 20 MEQ TABLET PO PRN (00:16)
[2021-05-16] MEDS: LACTATED RINGERS 1,000 ML IV SCH ×2 (00:43→10:52)
[2021-05-16 04:41] LABS: Basophils % 0.6 % (0.0-0.8); Hematocrit 21.1 VOL% (42.0-52.0); Immature Granulocytes % 8.3 %; Immature Granulocytes Absolute 0.13 #; Lymphocytes # 0.2 10*3/uL (1.4-4.0); Lymphocytes % 14.6 % (21.2-54.2); Mean Corpuscular HGB Conc 33.2 GM/DL (32-36); Mean Corpuscular Volume 99.5 FL (87-102); Mean Platelet Volume 12.1 FL (9.6-12.0); Monocytes % 5.7 % (1.7-12.7); NRBC # 0.07 10*3/uL; Neutrophils % 70.8 % (38.7-73.9); Red Blood Count 2.12 MC/CUMM (3.8-5.5); Red Cell Distribution Width 20.1 % (9.3-17.3); White Blood Count 1.6 T/CUMM (4-12)
[2021-05-16 04:52] LABS: Calcium 8.6 MG/DL (8.5-10.1); Osmolality,Calculated 280.4 MOS/KG (273-304); Potassium 4.1 MMOL/L (3.5-5.1)
[2021-05-16 05:03] LABS: Platelet Count 45 T/CUMM (130-400)
[2021-05-16 05:07] LABS: Hypochromia 1+; Lymphocytes 7 % (20-55); Microcytosis 1+; Nucleated Red Blood Cells 7 (0-5); Platelet Estimate Decreased; Segmented Neutrophils 85 % (50-85); Total Cells Counted 100
[2021-05-16] MEDS: INSULIN LISPRO 100 UNIT/ML SUBCUT SCH ×4 (09:27→22:24)
[2021-05-16] MEDS: POLYETHYLENE GLYCOL POWDER 17 GM PACK PO SCH (10:40)
[2021-05-16] MEDS: DOCUSATE SODIUM 100 MG CAPSULE PO SCH ×2 (10:40→22:24)
[2021-05-16] MEDS: DEXAMETHASONE 4 MG TABLET PO SCH (10:40)
[2021-05-16] MEDS: FAMOTIDINE 20 MG/2 ML VIAL IV SCH ×2 (10:42→22:23)
[2021-05-16] MEDS: HYDROmorphone 2 MG/1 ML VIAL IV PRN (10:44)
[2021-05-16] MEDS: DOXYCYCLINE HYCLATE INJ 100 MG in SODIUM CHLORIDE 0.9% 100 ML IV SCH ×2 (10:51→22:46)
[2021-05-16] MEDS: PANTOPRAZOLE 40 MG TABLET PO SCH (16:02)
[2021-05-16] MEDS ORDERED: SKIN HEALING OINT (AQUAPHOR) 50 GM TUBE TOP PRN (16:11)
[2021-05-16] MEDS: ATORVASTATIN 40 MG TABLET PO SCH (22:23)
[2021-05-17 05:55] LABS: Hematocrit 23.9 VOL% (42.0-52.0); Hemoglobin 7.8 GM/DL (14.0-18.0); Immature Granulocytes % 6.8 %; Immature Granulocytes Absolute 0.08 #; Lymphocytes # 0.2 10*3/uL (1.4-4.0); Lymphocytes % 13.6 % (21.2-54.2); Mean Corpuscular HGB Conc 32.6 GM/DL (32-36); Mean Platelet Volume 11.8 FL (9.6-12.0); Monocytes % 8.5 % (1.7-12.7); NRBC # 0.12 10*3/uL; Neutrophils % 71.1 % (38.7-73.9); Red Blood Count 2.44 MC/CUMM (3.8-5.5); Red Cell Distribution Width 19.5 % (9.3-17.3); White Blood Count 1.2 T/CUMM (4-12)
[2021-05-17 06:08] LABS: Platelet Count 38 T/CUMM (130-400)
[2021-05-17 06:18] LABS: Calcium 8.5 MG/DL (8.5-10.1); Osmolality,Calculated 275.7 MOS/KG (273-304); Potassium 3.8 MMOL/L (3.5-5.1)
[2021-05-17 06:35] LABS: Band Neutrophils 5 % (0-10); Hypochromia 1+; Lymphocytes 14 % (20-55); Nucleated Red Blood Cells 6 (0-5); Platelet Estimate Decreased; Segmented Neutrophils 71 % (50-85); Total Cells Counted 100
[2021-05-17] MEDS: DOCUSATE SODIUM 100 MG CAPSULE PO SCH ×2 (09:27→21:15)
[2021-05-17] MEDS: PANTOPRAZOLE 40 MG TABLET PO SCH (09:27)
[2021-05-17] MEDS: DEXAMETHASONE 4 MG TABLET PO SCH (09:27)
[2021-05-17] MEDS: POLYETHYLENE GLYCOL POWDER 17 GM PACK PO SCH ×2 (09:28→21:15)
[2021-05-17] MEDS: LACTATED RINGERS 1,000 ML IV SCH ×3 (09:33→21:12)
[2021-05-17] MEDS: INSULIN LISPRO 100 UNIT/ML SUBCUT SCH ×5 (11:46→21:17)
[2021-05-17] MEDS: DOXYCYCLINE HYCLATE INJ 100 MG in SODIUM CHLORIDE 0.9% 100 ML IV SCH ×2 (11:47→21:25)
[2021-05-17] MEDS: FAMOTIDINE 20 MG/2 ML VIAL IV SCH ×2 (11:47→21:16)
[2021-05-17] MEDS: ATORVASTATIN 40 MG TABLET PO SCH (21:15)
[2021-05-18 05:18] LABS: Calcium 8.5 MG/DL (8.5-10.1); Osmolality,Calculated 279.4 MOS/KG (273-304); Potassium 3.6 MMOL/L (3.5-5.1)
[2021-05-18] MEDS: INSULIN LISPRO 100 UNIT/ML SUBCUT SCH ×4 (07:53→20:30)
[2021-05-18] MEDS: DOXYCYCLINE HYCLATE INJ 100 MG in SODIUM CHLORIDE 0.9% 100 ML IV SCH (09:45)
[2021-05-18] MEDS: POLYETHYLENE GLYCOL POWDER 17 GM PACK PO SCH ×2 (09:46→20:30)
[2021-05-18] MEDS: LACTATED RINGERS 1,000 ML IV SCH (09:46)
[2021-05-18] MEDS: LINACLOTIDE 145 MCG CAPSULE PO SCH (09:46)
[2021-05-18] MEDS: DEXAMETHASONE 4 MG TABLET PO SCH (09:47)
[2021-05-18] MEDS: FAMOTIDINE 20 MG/2 ML VIAL IV SCH ×2 (09:47→21:23)
[2021-05-18] MEDS: PANTOPRAZOLE 40 MG TABLET PO SCH (09:47)
[2021-05-18] MEDS: DOCUSATE SODIUM 100 MG CAPSULE PO SCH ×2 (09:47→20:29)
[2021-05-18] MEDS: ATORVASTATIN 40 MG TABLET PO SCH (20:30)
[2021-05-19] MEDS: LACTATED RINGERS 1,000 ML IV SCH ×2 (02:10→21:02)
[2021-05-19] MEDS: HYDROmorphone 2 MG/1 ML VIAL IV PRN ×2 (04:31→19:37)
[2021-05-19 05:47] LABS: Calcium 8.4 MG/DL (8.5-10.1); Osmolality,Calculated 283.1 MOS/KG (273-304); Potassium 3.4 MMOL/L (3.5-5.1)
[2021-05-19 05:48] LABS: Basophils % 0.8 % (0.0-0.8); Hematocrit 25.3 VOL% (42.0-52.0); Hemoglobin 8.2 GM/DL (14.0-18.0); Immature Granulocytes % 7.3 %; Immature Granulocytes Absolute 0.09 #; Lymphocytes # 0.2 10*3/uL (1.4-4.0); Lymphocytes % 12.2 % (21.2-54.2); Mean Corpuscular HGB Conc 32.4 GM/DL (32-36); Mean Corpuscular Volume 99.2 FL (87-102); Mean Platelet Volume 12.3 FL (9.6-12.0); Monocytes % 10.6 % (1.7-12.7); Neutrophils % 69.1 % (38.7-73.9); Red Blood Count 2.55 MC/CUMM (3.8-5.5); Red Cell Distribution Width 19.4 % (9.3-17.3); White Blood Count 1.2 T/CUMM (4-12)
[2021-05-19 05:51] LABS: Platelet Count 30 T/CUMM (130-400)
[2021-05-19] MEDS ORDERED: MAGNESIUM SULF RIDER 2 GM/50 ML PREMIX IV PRN (07:29)
[2021-05-19] MEDS ORDERED: MAGNESIUM SULF RIDER 4 GM/100 ML PREMIX IV PRN (07:29)
[2021-05-19] MEDS: INSULIN LISPRO 100 UNIT/ML SUBCUT SCH ×4 (08:10→21:03)
[2021-05-19 09:19] LABS: Lymphocytes 12 % (20-55); Metamyelocytes 4 %; Myelocytes 1 %; Nucleated Red Blood Cells 4 (0-5); Platelet Estimate Decreased; Polychromasia Slight; Segmented Neutrophils 75 % (50-85); Tear Drop Cells Few; Total Cells Counted 100
[2021-05-19] MEDS: DEXAMETHASONE 4 MG TABLET PO SCH (09:31)
[2021-05-19] MEDS: DOCUSATE SODIUM 100 MG CAPSULE PO SCH ×2 (09:31→21:03)
[2021-05-19] MEDS: PANTOPRAZOLE 40 MG TABLET PO SCH (09:32)
[2021-05-19] MEDS: POTASSIUM CHLORIDE 20 MEQ TABLET PO PRN (09:32)
[2021-05-19] MEDS: POLYETHYLENE GLYCOL POWDER 17 GM PACK PO SCH ×2 (09:32→21:03)
[2021-05-19] MEDS: FAMOTIDINE 20 MG/2 ML VIAL IV SCH ×2 (09:32→21:03)
[2021-05-19] MEDS: LINACLOTIDE 145 MCG CAPSULE PO SCH (09:34)
[2021-05-19] MEDS: POTASSIUM CHLORIDE 20 MEQ TABLET PO SCH (11:13)
[2021-05-19] MEDS: LACTULOSE 20 GM/30 ML UDCUP PO SCH ×2 (15:38→21:03)
[2021-05-19] MEDS: ALVIMOPAN 12 MG CAPSULE PO SCH ×2 (15:39→21:02)
[2021-05-19] MEDS: ATORVASTATIN 40 MG TABLET PO SCH (21:02)
[2021-05-20] MEDS: HYDROmorphone 2 MG/1 ML VIAL IV PRN ×2 (04:46→13:17)
[2021-05-20 05:31] LABS: Hematocrit 30.6 VOL% (42.0-52.0); Hemoglobin 9.9 GM/DL (14.0-18.0); Immature Granulocytes % 4.5 %; Lymphocytes # 0.2 10*3/uL (1.4-4.0); Lymphocytes % 7.7 % (21.2-54.2); Mean Corpuscular HGB Conc 32.4 GM/DL (32-36); Mean Corpuscular Volume 98.4 FL (87-102); Mean Platelet Volume 12.3 FL (9.6-12.0); NRBC # 0.08 10*3/uL; Neutrophils % 78.8 % (38.7-73.9); Red Blood Count 3.11 MC/CUMM (3.8-5.5); Red Cell Distribution Width 19.8 % (9.3-17.3); White Blood Count 2.2 T/CUMM (4-12)
[2021-05-20 05:34] LABS: Platelet Count 28 T/CUMM (130-400)
[2021-05-20 05:54] LABS: Band Neutrophils 8 % (0-10); Hypochromia 1+; Lymphocytes 9 % (20-55); Microcytosis 1+; Myelocytes 1 %; Nucleated Red Blood Cells 5 (0-5); Polychromasia Slight; Segmented Neutrophils 77 % (50-85); Tear Drop Cells Slight; Total Cells Counted 100
[2021-05-20 05:55] LABS: Ovalocytes Few; Platelet Estimate Decreased
[2021-05-20 08:20] LABS: Albumin 2.1 G/DL (3.4-5.0); Bilirubin,Total 1.1 MG/DL (0.20-1.00); Calcium 8.8 MG/DL (8.5-10.1); Osmolality,Calculated 275.5 MOS/KG (273-304); Potassium 3.4 MMOL/L (3.5-5.1); Total Protein 5.2 G/DL (6.4-8.2)
[2021-05-20] MEDS ORDERED: fentaNYL 25 MCG/HR PATCH TRANSDERM SCH (09:00)
[2021-05-20] MEDS: ALVIMOPAN 12 MG CAPSULE PO SCH ×2 (09:39→21:36)
[2021-05-20] MEDS: PANTOPRAZOLE 40 MG TABLET PO SCH (09:39)
[2021-05-20] MEDS: DEXAMETHASONE 4 MG TABLET PO SCH (09:39)
[2021-05-20] MEDS: POTASSIUM CHLORIDE 20 MEQ TABLET PO SCH (09:40)
[2021-05-20] MEDS: POLYETHYLENE GLYCOL POWDER 17 GM PACK PO SCH ×2 (09:43→21:37)
[2021-05-20] MEDS: FAMOTIDINE 20 MG/2 ML VIAL IV SCH ×2 (09:44→21:36)
[2021-05-20] MEDS: DOCUSATE SODIUM 100 MG CAPSULE PO SCH ×2 (09:45→21:37)
[2021-05-20] MEDS: LINACLOTIDE 145 MCG CAPSULE PO SCH (09:45)
[2021-05-20] MEDS: INSULIN LISPRO 100 UNIT/ML SUBCUT SCH ×4 (11:21→21:37)
[2021-05-20] MEDS: LACTULOSE 20 GM/30 ML UDCUP PO SCH ×3 (11:22→21:37)
[2021-05-20] MEDS: LACTATED RINGERS 1,000 ML IV SCH (16:52)
[2021-05-20] MEDS: ATORVASTATIN 40 MG TABLET PO SCH (21:36)
[2021-05-21 05:08] LABS: Hematocrit 25.2 VOL% (42.0-52.0); Hemoglobin 8.2 GM/DL (14.0-18.0); Immature Granulocytes % 6.3 %; Immature Granulocytes Absolute 0.12 #; Lymphocytes # 0.1 10*3/uL (1.4-4.0); Lymphocytes % 4.2 % (21.2-54.2); Mean Corpuscular HGB Conc 32.5 GM/DL (32-36); Mean Corpuscular Volume 98.4 FL (87-102); Mean Platelet Volume 12.7 FL (9.6-12.0); Monocytes % 4.8 % (1.7-12.7); NRBC # 0.04 10*3/uL; Neutrophils % 84.7 % (38.7-73.9); Red Blood Count 2.56 MC/CUMM (3.8-5.5); Red Cell Distribution Width 19.7 % (9.3-17.3); White Blood Count 1.9 T/CUMM (4-12)
[2021-05-21 05:09] LABS: Platelet Count 19 T/CUMM (130-400)
[2021-05-21 05:32] LABS: Albumin 1.6 G/DL (3.4-5.0); Bilirubin,Total 1.4 MG/DL (0.20-1.00); Calcium 8.6 MG/DL (8.5-10.1); Osmolality,Calculated 279.3 MOS/KG (273-304); Potassium 3.5 MMOL/L (3.5-5.1); Total Protein 4.6 G/DL (6.4-8.2)
[2021-05-21 05:42] LABS: Band Neutrophils 3 % (0-10); Lymphocytes 9 % (20-55); Segmented Neutrophils 83 % (50-85); Total Cells Counted 100
[2021-05-21 05:43] LABS: Hypochromia 1+; Microcytosis 1+; Platelet Estimate Decreased
[2021-05-21] MEDS: LACTATED RINGERS 1,000 ML IV SCH ×2 (06:37→22:28)
[2021-05-21] MEDS: POTASSIUM CHLORIDE 20 MEQ TABLET PO SCH (10:29)
[2021-05-21] MEDS: ALVIMOPAN 12 MG CAPSULE PO SCH ×2 (10:29→21:46)
[2021-05-21] MEDS: PANTOPRAZOLE 40 MG TABLET PO SCH (10:30)
[2021-05-21] MEDS: DEXAMETHASONE 4 MG TABLET PO SCH (10:30)
[2021-05-21] MEDS: DOCUSATE SODIUM 100 MG CAPSULE PO SCH ×2 (10:30→22:26)
[2021-05-21] MEDS: FAMOTIDINE 20 MG/2 ML VIAL IV SCH ×2 (10:31→21:46)
[2021-05-21] MEDS: LINACLOTIDE 145 MCG CAPSULE PO SCH (10:32)
[2021-05-21] MEDS: LACTULOSE 20 GM/30 ML UDCUP PO SCH ×3 (11:27→22:26)
[2021-05-21] MEDS: INSULIN LISPRO 100 UNIT/ML SUBCUT SCH ×4 (11:27→22:27)
[2021-05-21] MEDS: POLYETHYLENE GLYCOL POWDER 17 GM PACK PO SCH ×2 (11:27→22:27)
[2021-05-21] MEDS: HYDROmorphone 2 MG/1 ML VIAL IV PRN (14:13)
[2021-05-21] MEDS: ATORVASTATIN 40 MG TABLET PO SCH (21:46)
[2021-05-22 05:37] LABS: Basophils % 0.5 % (0.0-0.8); Hematocrit 24.8 VOL% (42.0-52.0); Immature Granulocytes % 7.5 %; Immature Granulocytes Absolute 0.14 #; Lymphocytes # 0.2 10*3/uL (1.4-4.0); Mean Corpuscular HGB Conc 32.3 GM/DL (32-36); Mean Corpuscular Volume 99.2 FL (87-102); Mean Platelet Volume 9.2 FL (9.6-12.0); Monocytes % 5.9 % (1.7-12.7); Neutrophils % 78.1 % (38.7-73.9); Red Cell Distribution Width 19.5 % (9.3-17.3); White Blood Count 1.9 T/CUMM (4-12)
[2021-05-22 05:49] LABS: Platelet Count 18 T/CUMM (130-400)
[2021-05-22 05:52] LABS: Albumin 1.6 G/DL (3.4-5.0); Bilirubin,Total 1.1 MG/DL (0.20-1.00); Osmolality,Calculated 272.7 MOS/KG (273-304); Potassium 3.4 MMOL/L (3.5-5.1); Total Protein 4.7 G/DL (6.4-8.2)
[2021-05-22 05:55] LABS: Band Neutrophils 3 % (0-10); Lymphocytes 4 % (20-55); Platelet Estimate Decreased; Segmented Neutrophils 88 % (50-85); Total Cells Counted 100
[2021-05-22 05:56] LABS: Hypochromia 1+; Microcytosis 1+
[2021-05-22] MEDS: DOCUSATE SODIUM 100 MG CAPSULE PO SCH (09:42)
[2021-05-22] MEDS: ALVIMOPAN 12 MG CAPSULE PO SCH (09:42)
[2021-05-22] MEDS: FAMOTIDINE 20 MG/2 ML VIAL IV SCH (09:43)
[2021-05-22] MEDS: DEXAMETHASONE 4 MG TABLET PO SCH (09:43)
[2021-05-22] MEDS: PANTOPRAZOLE 40 MG TABLET PO SCH (09:43)
[2021-05-22] MEDS: POLYETHYLENE GLYCOL POWDER 17 GM PACK PO SCH (09:43)
[2021-05-22] MEDS: POTASSIUM CHLORIDE 20 MEQ TABLET PO SCH (09:43)
[2021-05-22] MEDS: LINACLOTIDE 145 MCG CAPSULE PO SCH (09:44)
[2021-05-22] MEDS: INSULIN LISPRO 100 UNIT/ML SUBCUT SCH ×2 (11:33→13:38)
[2021-05-22] MEDS: LACTULOSE 20 GM/30 ML UDCUP PO SCH ×2 (11:33→15:37)
[2021-05-22 12:08] VITALS: BP 103/76
[2021-05-22] MEDS: LACTATED RINGERS 1,000 ML IV SCH (16:19)
== END 2021-05-22 14:56 | disposition hospice, home (50) | DRG 542 ==
LOC: SUATTDRO → EDUNIT# → EDBD → N.ED 12:28 → SUATTDRO 16:55 → N.TELEN 16:55
PROVIDERS: ADMIT Internal Medicine; ATTEND Hospitalist